=== PATIENT | male | born 1950 | race Caucasian/White ===

== ENCOUNTER 2019-04-26 08:59 | Outpatient (RCR) | payer MEDICARE, MEDICAID, SELFPAY ==
[2019-04-26 10:43] LABS: IFOB Positive Control Positive; Immunochemical Fecal Occult Bl Negative (N)
== END 2019-07-25 23:59 | disposition home or self-care (01) ==
LOC: ANHLAB 08:59
PROVIDERS: PCP Family Medicine; Visit Provider Internal Medicine Gastroenterology
DX: K92.1 Melena (principal); B96.81 Helicobacter pylori [H. pylori] as the cause of diseases classified elsewhere
CPT/HCPCS: 82274

== ENCOUNTER 2019-12-06 11:50 | Emergency (ER) | payer MEDICARE, MEDICAID, SELFPAY ==
--- NOTE | ~2019-12-06 | XR_ITS ---
EXAMINATION: XR ribs LT 2V w CXR 2V EXAM DATE: 12/06/2019 12:53 INDICATION: Left rib pain, shortness of breath. No known injury. TECHNIQUE: Frontal projection of the upper left ribs, frontal projection of the lower left ribs, obli que projection of the left ribs, frontal and lateral chest x-ray(s) for interpretation. Correlation i s made to chest x-ray 09/14/2018. FINDINGS: There are no displaced acute left rib fractures identified. There is no soft tissue abnor mality seen. Minimal left basilar atelectasis. No confluent consolidation, pneumothorax or pleural ef fusion suspected. Cardiomediastinal silhouette is normal. IMPRESSION: Minimal left basilar atelectasis. Unremarkable ribs. Reviewed, dictated and finalized at location B.
--- NOTE | ~2019-12-06 | CT_ITS ---
EXAMINATION: CT abdomen pelvis w con EXAM DATE: 12/06/2019 14:12 INDICATION: Left-sided upper abdominal pain, symptoms 3-4 days. Shortness of breath. History of bladd er and colon and testicular cancer. TECHNIQUE: Spiral CT of the abdomen and pelvis was performed following intravenous injection of 100 m L Omnipaque 350. Axial, coronal and sagittal images were reviewed. The dose-length product (DLP) fo r this examination was 572.04 mGy-cm. The exposure was tailored according to patient size (auto mA e xposure control), and iterative reconstruction (ASIR) was used as additional dose reduction technique . Comparison is made to prior examination from 09/14/2018. FINDINGS: The liver, spleen, adrenal glands and pancreas are unremarkable. Gallbladder is unremarkab le. No biliary obstruction. Portal and splenic veins are patent. Kidneys enhance symmetrically. T here is no hydronephrosis. The prostate is unremarkable. Some diffuse bladder wall thickening, cou ld indicate chronic cystitis. There is no retroperitoneal or pelvic lymphadenopathy. There is mil d scattered arteriosclerotic disease. Mild descending colonic diverticulosis with moderate amount of inflammation surrounding a diverticula , acute uncomplicated diverticulitis. There is moderate sigmoid diverticulosis. The appendix is mason l. The stomach and small bowel are unremarkable. There is expected amount of colonic stool. No fr ee intraperitoneal gas. The heart is normal in size. There are no pericardial or pleural effusions . The lung bases are unremarkable. 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 There are no osteoblastic or osteolytic lesions identified. IMPRESSION: Acute uncomplicated descending colonic diverticulitis. Reviewed, dictated and finalized at location B.
[2019-12-06 11:57] VITALS: BP 115/90; PULSE 114; RESP 18; TEMP 37; O2SAT 100
--- NOTE | 2019-12-06 12:37 | ECG_ITS ---
Measurements Intervals [place] Rate: 93 P: 27 WV: 125 QRS: 35 QRSD: 102 T: 26 QT: 349 QTc: 436 Interpretive Statements SINUS RHYTHM NORMAL ECG Electronically Signed On 12-06-2019 13:50:49 CDT by Aleksandar Whitfield D.O.
[2019-12-06 12:52] LABS: Alanine Aminotransferase 37 U/L (4-50); Albumin Level 4.5 g/dL (3.5-5.1); Alkaline Phosphatase 43 U/L (38-126); Aspartate Amino Transferase 49 U/L (17-59); Bilirubin,Total 0.5 mg/dL (0.2-1.3); Blood Urea Nitrogen 14 mg/dL (9-20); Calcium 10.1 mg/dL (8.4-10.2); Carbon Dioxide 23 mmol/L (22-30); Chloride 107 mmol/L (98-107); Estimated CRCL calculation 76 ml/min; Estimated Glomerular Filt Rate > 60; Glucose 101 mg/dL (75-110); Potassium 3.9 mmol/L (3.4-5.0); Sodium 140 mmol/L (137-145)
[2019-12-06 12:58] LABS: Basophils Percent Auto 0.4 % (0.2-1.2); Eosinophils Absolute Auto 0.2 K/mm3 (0-0.3); Eosinophils Percent Auto 1.7 % (0-4.4); Hematocrit 43.6 % (42.0-52.0); Hemoglobin 14.3 g/dL (14.0-18.0); Immature Granulocyte Absolute 0.02 K/mm3 (0.00-0.031); Immature Granulocyte Percent A 0.2 % (0-0.5); Lymphocytes Absolute Auto 1.51 K/mm3 (0.9-3.2); Lymphocytes Percent Auto 16.7 % (18.3-44.2); Mean Corpuscular HGB Conc 32.8 g/dl (32-36); Mean Corpuscular Hemoglobin 30.4 pg (26-34); Mean Corpuscular Volume 92.8 fl (80-100); Monocytes Absolute Auto 1.1 K/mm3 (0.1-0.6); Monocytes Percent Auto 11.6 % (2.6-8.5); Neutrophils Absolute Auto 6.3 K/mm3 (1.3-6.7); Neutrophils Percent Auto 69.4 % (45.5-73.1); Platelet Count Result 280 k/mm3 (150-375); Red Cell Distribution Width 12.9 % (11.5-14.5); White Blood Count 9.1 K/mm3 (4.5-10.0)
--- NOTE | 2019-12-06 13:02 | ED.ABDPAIN ---
HPI - Abdominal Pain General Chief Complaint: Abdominal Pain <KEYONNA Ewing Last Filed: 12/06/19 14:57> Stated Complaint: L flank pain <KEYONNA Ewing Last Filed: 12/06/19 14:57> Time Seen by Provider: 12/06/19 12:08 <KEYONNA Ewing Last Filed: 12/06/19 14:57> Source: patient <KEYONNA Ewing Last Filed: 12/06/19 14:57> Mode of arrival: ambulatory <KEYONNA Ewing Last Filed: 12/06/19 14:57> Limitations: no limitations <KEYONNA Ewing Last Filed: 12/06/19 14:57> History of Present Illness HPI narrative: This is a 68 year old male that presents to the ER for left sided abdominal pain x 3 days. Reports pain is worse with deep breathing and movement. Also reports he feels short of breath when he lies on his right side. Denies fever, cough, chest pain, nausea, vomiting, dysuria or hematuria. <KEYONNA Ewing Last Filed: 12/06/19 14:57> Related Data Home Medications: Home Medications Medication Instructions Recorded Confirmed alendronate 70 mg PO WEEKLY 12/06/19 fenofibrate 160 mg PO DAILY 12/06/19 hydrochlorothiazide 25 mg PO DAILY 12/06/19 lisinopril 20 mg PO DAILY 12/06/19 lovastatin 40 mg PO DAILY 12/06/19 metformin 500 mg PO DAILY 12/06/19 propranolol 40 mg PO DAILY 12/06/19 venlafaxine 75 mg PO DAILY 12/06/19 <KEYONNA Ewing Last Filed: 12/06/19 14:57> Allergies/Adverse Reactions: Allergies Allergy/AdvReac Type Severity Reaction Status Date / Time No Known Allergies Allergy Verified 12/06/19 12:02 <KEYONNA Ewing Last Filed: 12/06/19 14:57> Review of Systems Review of Systems: Narrative: CONSTITUTIONAL: Denies fever CARDIOVASCULAR: Denies chest pain, edema. RESPIRATORY: Reports dyspnea. Denies cough GASTROINTESTINAL: Reports abdominal pain. Denies nausea, vomiting, or diarrhea. GENITOURINARY: Denies dysuria or hematuria. <Roseann Lozano PA-C - Last Filed: 12/06/19 14:57> All systems reviewed & are unremarkable except as noted in HPI and below <Roseann Lozano PA-C - Last Filed: 12/06/19 14:57> PMFSH Past Medical History Medical History: Medical History (Updated 12/06/19 @ 14:55 by Roseann Lozano PA-C) History of bladder cancer History of colon cancer History of diabetes mellitus History of hyperlipidemia History of hypertension History of testicular cancer <Roseann Lozano PA-C - Last Filed: 12/06/19 14:57> Family History Family History: Family History (Updated 10/05/15 @ 14:03 by DOCTOR UNKNOWN) Sibling Malignant neoplasm of prostate Mother Family history of heart disease in male family member before age 55 Other Diabetes mellitus Family history of allergic disorder Hypertension <Roseann Lozano PA-C - Last Filed: 12/06/19 14:57> Social History Social History: Social History Alcohol intake: never Gender identity (if verbalized by the patient): Male <Roseann Lozano PA-C - Last Filed: 12/06/19 14:57> Exam Narrative: Exam Narrative: GENERAL: Well-appearing, well-nourished, and in no acute distress. HEAD: Normocephalic, atraumatic. EYES: EOMI. CHEST: Clear to auscultation. No respiratory distress. No wheezes rales or rhonchi HEART: Regular rate and rhythm. No murmur heard. Normal peripheral pulses. ABDOMEN: Soft, nondistended, normal active bowel sounds. Mild tenderness palpation of the left upper quadrant, without guarding EXTREMITIES: Normal range of motion. No edema. SKIN: Warm, dry, no rash. NEURO: No focal deficits. Alert and oriented x3. PSYCH: Normal mood and affect <Roseann Lozano PA-C - Last Filed: 12/06/19 14:57> Course Vital Signs Vital signs: Vital Signs Temperature 37.0 C 12/06/19 11:57 Pulse Rate 114 H 12/06/19 11:57 Respiratory Rate 18 12/06/19 11:57 Blood Pressure 115/90 12/06/19 11:57 Pulse Oximetry 100 12/06/19 11:57 Temperature 37.0 C 11/11
[2019-12-06 13:14] LABS: Troponin I < 0.012 ng/mL (0.000-0.034)
[2019-12-06 13:28] LABS: D Dimer 0.27 ug/mL (<0.48)
[2019-12-06 13:37] VITALS: BP 104/77; PULSE 99; RESP 16; O2SAT 97
[2019-12-06 13:58] LABS: Add Urine Microscopic? YES; Appearance Urine Clear (Clear); Bilirubin Urine Negative (Negative); Blood Urine Negative (Negative); Color Urine Yellow (Yellow); Glucose Urine UA Negative (Negative); Ketones Urine Negative (Negative); Leukocyte Esterase Ur Negative LEU/UL (Negative); Mucus Urine Few /lpf; Nitrate Urine Negative (Negative); Protein Urine Negative (Negative); WBC Urine 0-3 /hpf
[2019-12-06 15:03] VITALS: BP 135/89; PULSE 88; RESP 18; O2SAT 99
== END 2019-12-06 15:22 | disposition home or self-care (01) ==
PROVIDERS: Physician Assistant; Emergency Provider Emergency Medicine; PCP Family Medicine
DX: K57.32 Diverticulitis of large intestine without perforation or abscess without bleeding (principal); E11.9 Type 2 diabetes mellitus without complications; E78.5 Hyperlipidemia, unspecified; I10 Essential (primary) hypertension; Z85.038 Personal history of other malignant neoplasm of large intestine; Z85.51 Personal history of malignant neoplasm of bladder; Z85.47 Personal history of malignant neoplasm of testis; Z79.84 Long term (current) use of oral hypoglycemic drugs
CPT/HCPCS: 36415; 71046; 71100; 74177; 80053; 81001; 84484; 85025; 85380; 93005; 99284; Q9967

== ENCOUNTER 2019-12-30 09:56 | Outpatient (CLI) | payer MEDICARE, MEDICAID, SELFPAY ==
[2019-12-30 10:47] LABS: Estimated Glomerular Filt Rate > 60
== END 2019-12-30 09:57 | disposition home or self-care (01) ==
PROVIDERS: PCP Family Medicine; Visit Provider Internal Medicine Gastroenterology
DX: R10.32 Left lower quadrant pain (principal)
CPT/HCPCS: 36415; 82565

== ENCOUNTER 2020-12-08 12:43 | Emergency (ER) | payer MEDICARE, MEDICAID, SELFPAY ==
--- NOTE | ~2020-12-08 | XR_ITS ---
EXAMINATION: XR finger 4th RT min 2V INDICATION: Right fourth finger pain TECHNIQUE: Three views of the right fourth finger are obtained. COMPARISON: None available FINDINGS: Bone alignment is normal. There is no fracture. There is flexion of the fourth finger. The soft tissues appear unremarkable. IMPRESSION: 1. No acute osseous abnormality. Flexion of the fourth finger could reflect tendinous injury. Reviewed, dictated and finalized at location B. IMPRESSION: 1. No acute osseous abnormality. Flexion of the fourth finger could reflect ten dinous injury.
[2020-12-08 12:52] VITALS: BP 114/72; PULSE 71; RESP 16; TEMP 36.7; O2SAT 98
[2020-12-08 12:59] VITALS: BP 114/72; PULSE 71; RESP 16; TEMP 36.7; O2SAT 98
--- NOTE | 2020-12-08 13:22 | ED.UPPEXIN ---
HPI - Extremity Injury (Upper) General Chief Complaint: Extremity Injury, Upper Stated Complaint: right 4th finger injury Time Seen by Provider: 12/08/20 13:04 Source: patient and RN notes reviewed Mode of arrival: ambulatory Limitations: no limitations History of Present Illness HPI narrative: Patient presents today complaint of an injury to his right fourth finger. He struck the finger on the door to his refrigerator this morning and now cannot fully extend the finger at the DIP. Denies pain. He has not tried any interventions prior to arrival. Denies numbness or tingling in the hand or finger. MD complaint: injury to: right and finger Related Data Home Medications Medication Instructions Recorded Confirmed alendronate 70 mg PO WEEKLY 12/06/19 fenofibrate 160 mg PO DAILY 12/06/19 hydrochlorothiazide 25 mg PO DAILY 12/06/19 lisinopril 20 mg PO DAILY 12/06/19 propranolol 40 mg PO DAILY 12/06/19 venlafaxine 75 mg PO DAILY 12/06/19 bupropion HCl mg PO 12/08/20 sitagliptin [Januvia] mg 12/08/20 Allergies Allergy/AdvReac Type Severity Reaction Status Date / Time No Known Allergies Allergy Verified 12/06/19 12:02 Review of Systems Review of Systems: Narrative: CONSTITUTIONAL: Denies body aches, fever, chills, or sweats. EYES: Denies visual changes, redness, or discharge. ENT: Denies rhinorrhea, congestion, sore throat, or otalgia. CARDIOVASCULAR: Denies chest pain, palpitations, or edema. RESPIRATORY: Denies cough or dyspnea. GASTROINTESTINAL: Denies abdominal pain, nausea, vomiting, or diarrhea. GENITOURINARY: Denies dysuria or hematuria. SKIN: Denies rash, itching, or wounds. MUSCULOSKELETAL: Denies back pain, joint pain, or myalgia.+ Decreased range of motion in the right fourth finger NEUROLOGIC: Denies headache, numbness, tingling, or weakness. PSYCH: Denies depression or anxiety. [facility] Past Medical History Medical History (Updated 12/08/20 @ 16:52 by Annabelle Alejandro, [facility], ) Anxiety Depression Diabetes Eczema History of bladder cancer History of colon cancer History of diabetes mellitus History of hyperlipidemia History of hypertension History of testicular cancer Hypercholesterolemia Hypertension Osteoporosis Surgical History Surgical History (Updated 12/08/20 @ 16:52 by Annabelle Alejandro, [facility], ) History of colon resection History of orchiectomy, unilateral Family History Family History (Updated 10/05/15 @ 14:03 by DOCTOR UNKNOWN) Sibling Malignant neoplasm of prostate Mother Family history of heart disease in male family member before age 55 Other Diabetes mellitus Family history of allergic disorder Hypertension Social History Social History Alcohol intake: never Gender identity (if verbalized by the patient): Male Comments At time of signature, I have reviewed and agree with nursing past medical, surgical, social and family history unless otherwise noted. Please see nursing chart for further information. There is no relevant family history pertinent to the presenting complaint Exam Narrative: Exam Narrative: GENERAL: Well-appearing, well-nourished, and in no acute distress. HEAD: Normocephalic, atraumatic. EYES: EOMI. No redness or drainage. Conjunctivae normal. ENT: Mucous membranes pink and moist. NECK: Normal AROM. CHEST: No respiratory distress. EXTREMITIES: Right fourth finger: patient unable to extend at the DIP. PROM of the DIP fully without pain. Full AROM of the PIP without pain. No tenderness of the finger. SKIN: Warm, dry, no rash. Capillary refill normal. Normal skin turgor. NEURO: No focal deficits. Alert and oriented x3. Gait steady. PSYCH: Normal affect. No signs of depression or anxiety. Course Vital Signs Vital signs: Vital Signs Temperature 98.0 F 12/08/20 12:52 Pulse Rate 71 12/08/20 12:52 Respiratory Rate 16 12/08/20 12:52 Blood Pressure 114/72 12/08/20 12:52 Pulse Oximetry 98 12/08/20 12
== END 2020-12-08 13:34 | disposition home or self-care (01) ==
PROVIDERS: Emergency Provider Nurse Practitioner
DX: M20.011 Mallet finger of right finger(s) (principal); E11.9 Type 2 diabetes mellitus without complications; E78.5 Hyperlipidemia, unspecified; I10 Essential (primary) hypertension; E78.00 Pure hypercholesterolemia, unspecified; M81.0 Age-related osteoporosis without current pathological fracture; Z85.038 Personal history of other malignant neoplasm of large intestine; Z85.51 Personal history of malignant neoplasm of bladder; Z85.47 Personal history of malignant neoplasm of testis
CPT/HCPCS: 29130; 73140; 99213; G0463

== ENCOUNTER 2021-02-10 01:08 | Day surgery (SDC) | payer MEDICARE, MEDICAID, SELFPAY ==
[2021-02-04 15:27] VITALS: BMI 24.5
--- NOTE | ~2021-02-10 | XR_ITS ---
EXAMINATION: XR surgery orthopedic DATE: 02/10/2021 11:53 INDICATION: Closed reduction percutaneous pinning of the right fourth finger. TECHNIQUE: 6 fluoroscopic spot images of the right fourth digit were obtained during procedure perfor med by Dr. Elder. Radiologist was not present for the imaging or procedure. The amount of fluoroscopy time used during this procedure was 0.9 minutes. COMPARISON: None. FINDINGS: Mild mallet finger deformity of the right fourth digit with persistent mild flexion at the distal int erphalangeal joint despite normal extension of the proximal interphalangeal joint. There is soft tiss ue swelling about the proximal interphalangeal joint. Subsequent images demonstrate reduction to norm al extended alignment and percutaneous pin fixation across the distal interphalangeal joint with a pa ir of previous pins extending from the tuft of the distal phalanx to the base of the middle phalanx. No fracture. Mild osteoarthritis at the third distal interphalangeal joint. IMPRESSION: 1. Expected appearance during reduction and percutaneous pin fixation of a mallet finger deformity of the right fourth finger. Correlate with procedure note for further detail. Reviewed, dictated and finalized at location A. IMPRESSION: 1. Expected appearance during reduction and percutaneous pin fixation of a mall et finger deformity of the right fourth finger. Correlate with procedure note f or further detail.
--- NOTE | 2021-02-10 07:35 | WPDHPUPDATE1 ---
History and Physical Update Update Date/Time: 02/10/21 07:35 History and Physical has been reviewed, including an updated exam of the patient. There are NO changes in the patient's condition. Risks, benefits, and alternatives have been discussed and questions answered. Patient agrees to proceed with procedure.
[2021-02-10 10:53] VITALS: BP 117/82; PULSE 68; RESP 14; TEMP 36.6; O2SAT 99
[2021-02-10 11:14] VITALS: BP 109/81; PULSE 66; RESP 18; O2SAT 97
[2021-02-10 11:20] VITALS: BP 111/76; PULSE 68; RESP 18; O2SAT 97
[2021-02-10 11:30] VITALS: BP 114/85; PULSE 68; RESP 18; O2SAT 97
[2021-02-10 11:40] VITALS: BP 118/77; PULSE 71; RESP 18; O2SAT 97
[2021-02-10 11:54] VITALS: BP 121/89; PULSE 69; RESP 18; O2SAT 96
--- NOTE | 2021-02-10 11:59 | W.PM.PROC2 ---
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 He was taken to the operating room placed supine operating table. A time-out was held and confirmed. The digit was anesthetized with 1% lidocaine with epinephrine was prepped and draped in usual fashion. Imaging was done to confirm the condition and to place a marking on the skin for orientation. Closed positioning was done and the 0.045 in C-wire was driven retrograde from the tip of the finger through the distal phalanx across the proximal interphalangeal joint and into the base of the middle phalanx. This was guided by the imaging along the way. This was a satisfactorily placed pen. A 2.045nd inch C-wire was driven alongside this went. Both pins were cut well below the skin level after making small incisions. The small incisions were closed with interrupted 5 0 nylon. Small bandage was applied patient discharged home with a prescription for hydrocodone 10/12/2024 number 5 Implants 0.045 in C wires x2 Estimated Blood Loss 0 Tourniquet Time 0 Drains No Packing No Pathology none sent Complications No immediate complications Condition stable Disposition same day
--- NOTE | 2021-02-10 12:34 | SUR.PHASEII ---
NO PAIN, DISCHARGE HOME.
== END 2021-02-10 12:21 | disposition home or self-care (01) ==
PROVIDERS: PCP Physician Assistant; Visit Provider Plastic Surgery
PROC: (CPT 26432; principal; 2021-02-10 11:00)
DX: M20.011 Mallet finger of right finger(s) (principal); I10 Essential (primary) hypertension; E11.9 Type 2 diabetes mellitus without complications
CPT/HCPCS: 26432; A9270; C1713

== ENCOUNTER 2021-10-13 09:59 | Outpatient (CLI) | payer MEDICARE, MEDICAID, SELFPAY ==
--- NOTE | ~2021-10-13 | XR_ITS ---
EXAMINATION: XR foot LT min 3V DATE: 10/13/2021 10:16 INDICATION: Left foot pain. TECHNIQUE: 4 views of left foot were obtained. COMPARISON: None. FINDINGS: There is lateral subluxation of second distal phalanx. No fracture. There is severe osteoar thritis of first metatarsophalangeal joint and mild osteoarthritis of the some of the interphalangeal joints and midfoot joints. There is an enthesophyte at plantar aspect of calcaneal tuberosity. IMPRESSION: 1. Polyarticular osteoarthritis. Reviewed, dictated and finalized at location B.
== END 2021-10-13 10:00 | disposition home or self-care (01) ==
PROVIDERS: PCP Physician Assistant; Visit Provider Physician Assistant
DX: M79.672 Pain in left foot (principal); M79.10 Myalgia, unspecified site; M19.072 Primary osteoarthritis, left ankle and foot
CPT/HCPCS: 73630

== ENCOUNTER 2021-10-14 06:53 | Outpatient (CLI) | payer MEDICARE, MEDICAID, SELFPAY ==
[2021-10-14 07:38] LABS: Alanine Aminotransferase 18 U/L (4-50); Albumin Level 4.5 g/dL (3.5-5.1); Alkaline Phosphatase 42 U/L (38-126); Anion Gap 8 mmol/L (8-16); Aspartate Amino Transferase 22 U/L (17-59); Bilirubin,Total 0.7 mg/dL (0.2-1.3); Blood Urea Nitrogen 12 mg/dL (9-20); CRP < 0.5 mg/dL (<1.0); Calcium 9.2 mg/dL (8.4-10.2); Carbon Dioxide 27 mmol/L (22-30); Chloride 101 mmol/L (98-107); Cholesterol 152 mg/dL (0-200); Estimated Glomerular Filt Rate > 60; Glucose 106 mg/dL (65-110); HDL Direct 45 mg/dL; Potassium 3.8 mmol/L (3.4-5.0); Sodium 136 mmol/L (137-145); Triglycerides 59 mg/dL (<150); Uric Acid 4.9 mg/dL (3.5-8.5)
[2021-10-14 07:48] LABS: LDL Cholesterol Direct 86 mg/dL
[2021-10-14 08:04] LABS: Basophils Absolute Auto 0.1 K/mm3 (0.0-0.1); Basophils Percent Auto 1.3 % (0.2-1.2); Eosinophils Absolute Auto 0.1 K/mm3 (0-0.3); Eosinophils Percent Auto 1.7 % (0-4.4); Hematocrit 46.3 % (42.0-52.0); Hemoglobin 15.8 g/dL (14.0-18.0); Immature Granulocyte Absolute 0.05 K/mm3 (0.00-0.031); Lymphocytes Absolute Auto 1.41 K/mm3 (0.9-3.2); Lymphocytes Percent Auto 27.2 % (18.3-44.2); Mean Corpuscular HGB Conc 34.1 g/dl (32-36); Mean Corpuscular Hemoglobin 31.3 pg (26-34); Mean Corpuscular Volume 91.9 fl (80-100); Mean Platelet Volume 9.5 fl (7.4-10.4); Monocytes Absolute Auto 0.5 K/mm3 (0.1-0.6); Monocytes Percent Auto 9.8 % (2.6-8.5); Neutrophils Absolute Auto 3.1 K/mm3 (1.3-6.7); Platelet Count Result 251 k/mm3 (150-375); Red Blood Count 5.04 M/mm3 (4.6-6.20); Red Cell Distribution Width 12.1 % (11.5-14.5); White Blood Count 5.2 K/mm3 (4.5-10.0)
[2021-10-14 09:04] LABS: Erythrocyte Sedimentation Rate 1 mm/hr (0-20)
[2021-10-14 09:21] LABS: Appearance Urine Clear (Clear); Bilirubin Urine 1+ (Negative); Blood Urine Negative (Negative); Color Urine Yellow (Yellow); Glucose Urine UA Negative (Negative); Ketones Urine Trace mg/dL (Negative); Leukocyte Esterase Ur Negative LEU/UL (NEGATIVE); Nitrate Urine Negative (Negative); Protein Urine Negative (Negative); Specific Grav Ur >= 1.030 (1.001-1.035); Urobilinogen Urine 0.2 mg/dL (<2.0); pH Urine 5.5 (5.0-9.0)
[2021-10-14 09:32] LABS: Bacteria Urine Trace /hpf; Mucus Urine Heavy /lpf; RBC Urine 0-2 /hpf (0-2)
[2021-10-14 09:34] LABS: Add Urine Microscopic? YES
== END 2021-10-14 06:54 | disposition home or self-care (01) ==
LOC: ANHLAB 07:00
PROVIDERS: PCP Physician Assistant; Visit Provider Physician Assistant
DX: E78.5 Hyperlipidemia, unspecified (principal); M79.10 Myalgia, unspecified site; E11.9 Type 2 diabetes mellitus without complications
CPT/HCPCS: 36415; 80053; 80061; 81001; 84550; 85025; 85652; 86140

== ENCOUNTER 2022-01-31 06:53 | Outpatient (CLI) | payer MEDICARE, MEDICAID, SELFPAY ==
--- NOTE | ~2022-01-31 | CT_ITS ---
EXAMINATION: CT abdomen pelvis w con INDICATION: Left-sided abdominal pain TECHNIQUE: Computed tomographic images of the abdomen and pelvis were obtained after the administrati on of 100 cc of Omnipaque 350 intravenous contrast. The dose-length product (DLP) was 597.81 mGy-cm. Automated exposure control and iterative reconstruction technique were employed. COMPARISON: 12/06/2019 FINDINGS: Minimal dependent atelectasis is present in the lung bases. The heart size is normal. The l iver, spleen, pancreas, gallbladder, and adrenal glands are normal. Cysts of the kidneys measure up t o 3.1 cm on the right. There is calcified atherosclerosis of the aorta and many of the other arteries . No pathologically enlarged abdominal or pelvic lymph nodes are identified. The appendix is normal. There is no free intraperitoneal gas or evidence of bowel obstruction. Colonic diverticulosis is pres ent without evidence of diverticulitis. There is mild chronic circumferential wall thickening of the urinary bladder, likely chronic outlet obstruction. 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 IMPRESSION: 1. No CT correlate for the patient's symptoms. 2. Diverticulosis without evidence of diverticulitis. Reviewed, dictated and finalized at location B.
[2022-01-31 07:14] LABS: Estimated Glomerular Filt Rate > 60
== END 2022-01-31 06:54 | disposition home or self-care (01) ==
PROVIDERS: PCP Physician Assistant; Visit Provider Nurse Practitioner Family
DX: R10.9 Unspecified abdominal pain (principal); K57.30 Diverticulosis of large intestine without perforation or abscess without bleeding
CPT/HCPCS: 74177; Q9967

== ENCOUNTER 2022-05-18 10:28 | Day surgery (SDC) | payer MEDICARE, MEDICAID, SELFPAY ==
[2022-05-10 09:26] VITALS: BMI 26.3
--- NOTE | 2022-05-17 15:04 | PM.HPGS ---
History of Present Illness History of Present Illness Consent: Risks, benefits, and alternatives have been discussed and questions answered. Patient agrees to proceed with procedure. Chief complaint: History of Rectal Cancer Narrative: Giancarlo Thakkar is a 71 year old male referred for colon cancer screening. He states that 6 years ago he had removal of a ?cancerous rectal polyp?. Three years ago he had removal of a tubular adenoma. Review of Systems Review of Systems: All systems reviewed & are unremarkable except as noted in HPI and below PMFSH Past Medical History Medical History Adenomatous colon polyp Anxiety Depression Eczema History of bladder cancer History of colon cancer History of diabetes mellitus History of hyperlipidemia History of hypertension History of testicular cancer Hx of malignant neoplasm of rectum Hypercholesterolemia Hypertension Left sided abdominal pain Osteoporosis Surgical History Surgical History History of colon resection History of orchiectomy, unilateral Family History Family History Sibling Malignant neoplasm of prostate Mother Family history of heart disease in male family member before age 55 Other Diabetes mellitus Family history of allergic disorder Hypertension Social History Social History Smoking status: Never smoker Alcohol intake: never Alcohol use details: MODERATELY HEAVY ALCOHOL USE IN PAST Substance use: never Substance use type: does not use Living arrangements: alone Gender identity (if verbalized by the patient): Male Spiritual care concerns: No Meds Home Medications and Allergies Home Medications Medication Instructions Recorded Confirmed Type alendronate 70 mg tablet 70 mg PO WEEKLY 12/06/19 05/18/22 History hydrochlorothiazide 25 mg tablet 25 mg PO QAM 12/06/19 05/18/22 History lisinopril 20 mg tablet 20 mg PO QAM 12/06/19 05/18/22 History propranolol 40 mg tablet 20 mg PO BID 12/06/19 05/18/22 History bupropion HCl 150 mg 24 hr tablet, 150 mg PO QAM 12/08/20 05/18/22 History extended release Allergies Allergy/AdvReac Type Severity Reaction Status Date / Time No Known Allergies Allergy Verified 05/18/22 11:43 Exam Const: General: alert Orientation/consciousness: patient oriented x3 Resp: Auscultation: clear to auscultation bilaterally Cardio: Rhythm: regular rhythm GI: GI Palp: Yes Soft to palpation and No Tenderness to palpation present (GI) Neuro: General: patient oriented x3 Assessment and Plan Assessment and plan (1) Colon cancer screening: Code(s): Z12.11 - Encounter for screening for malignant neoplasm of colon Status: Acute Assessment and Plan: Colonoscopy with possible biopsy or polypectomy or cautery or injection of substances.
--- NOTE | 2022-05-18 07:21 | WPDANESEPPF ---
Anes - Initial Pre Proc Eval Procedure: Operation Date: 05/18/22 12:30 Proposed Procedures p Screening Colonoscopy - Jose Samaniego MD Date/Time: 05/18/22 07:21 Surgeon: Jose Samaniego MD Pre Op Diagnosis: History of Rectal Cancer Patient Data Age: 71 Gender: M Height: 1.73 m Weight: 78.5 kg Allergies Allergy/AdvReac Type Severity Reaction Status Date / Time No Known Allergies Allergy Verified 05/10/22 09:28 Home Medications Medication Instructions Recorded Confirmed Type alendronate 70 mg tablet 70 mg PO WEEKLY 12/06/19 05/10/22 History hydrochlorothiazide 25 mg tablet 25 mg PO QAM 12/06/19 05/10/22 History lisinopril 20 mg tablet 20 mg PO QAM 12/06/19 05/10/22 History propranolol 40 mg tablet 20 mg PO BID 12/06/19 05/10/22 History bupropion HCl 150 mg 24 hr tablet, 150 mg PO QAM 12/08/20 05/10/22 History extended release Patient hx anesthesia problems: none Family hx anesthesia problems: none Results Review: All pre-operative results and documents have been reviewed as part of the pre-operative evaluation. [facility] Past Medical History Medical History (Updated 05/18/22 @ 11:22 by Anish Mcpherson DO) Adenomatous colon polyp Anxiety Depression Eczema History of bladder cancer History of colon cancer History of diabetes mellitus History of hyperlipidemia History of hypertension History of testicular cancer Hx of malignant neoplasm of rectum Hypercholesterolemia Hypertension Left sided abdominal pain Osteoporosis Surgical History Surgical History History of colon resection History of orchiectomy, unilateral Family History Family History Sibling Malignant neoplasm of prostate Mother Family history of heart disease in male family member before age 55 Other Diabetes mellitus Family history of allergic disorder Hypertension Social History Social History Smoking status: Never smoker Alcohol intake: never Alcohol use details: MODERATELY HEAVY ALCOHOL USE IN PAST Substance use: never Substance use type: does not use Living arrangements: alone Gender identity (if verbalized by the patient): Male Spiritual care concerns: No Anes - Eval Final PreProcedure Day of Procedure 05/18/22 07:21 Patient weight: overweight Heart: regular rate and rhythm Lungs: clear to auscultation Airway: Mallampati scale class II Neurological: alert and oriented Last oral intake: >/= 8 hours ASA classification: II Emergent: no Anesthetic plan: proceed Anesthesia type and monitoring: general GIVS and standard monitoring Results Review: All pre-operative results and documents have been reviewed as part of the pre-operative evaluation. Informed Consent: The patient's anesthetic plan and its attendant risks and benefits were discussed with the patient/family/POA. Questions were solicited and answers provided to the satisfaction of the patient/family/POA.
[2022-05-18 10:50] VITALS: BP 140/102; PULSE 109; RESP 20; TEMP 36.5; O2SAT 99
[2022-05-18] MEDS: LACTATED RINGERS 1,000 ML 150 ML IV CONT (11:49)
[2022-05-18 12:23] VITALS: BP 110/87; PULSE 108; RESP 18; O2SAT 95
[2022-05-18 12:33] VITALS: BP 131/98; PULSE 93; RESP 18; O2SAT 99
[2022-05-18 12:43] VITALS: BP 124/98; PULSE 96; RESP 18; O2SAT 100
--- NOTE | 2022-05-18 12:47 | SUR.PHASEII ---
pt awake and alert. denies pain. eating and drinking.
--- NOTE | 2022-05-18 13:19 | SUR.PHASEII ---
1315; pt dressed and waiting for ride
--- NOTE | 2022-05-18 13:37 | WPDANESPN ---
Anes - Prog Note Post-Op Date/Time: 05/18/22 13:37 Cardiovascular status: normal Respiratory status: normal Airway patency: baseline Mental status: baseline Post-Op hydration status: normal Vital Signs: Last Vital Signs Temp 36.5 C 05/18/22 10:50 Pulse 96 05/18/22 12:43 Resp 18 05/18/22 12:43 BP 124/98 H 05/18/22 12:43 Pulse Ox 100 05/18/22 12:43 O2 Del Method Room Air 05/18/22 12:43 Pain Score (VAS): 0 I/O: Intake & Output 05/17/22 05/18/22 05/18/22 23:59 07:59 15:59 Intake Total 500 Balance 500 Post-procedural complaints: none Patient Feedback: Patient satisfied with anesthetic care. Other Findings: Patient vital signs back to baseline. Patient denies nausea and vomiting. Patient's pain under control. Patient OK for discharge.
[2022-05-18 13:53] LABS: Glucose Point of Care 135 mg/dl (65-105)
== END 2022-05-18 13:25 | disposition home or self-care (01) ==
PROVIDERS: PCP Nurse Practitioner Family; Visit Provider Internal Medicine Gastroenterology
PROC: 0DJD8ZZ Inspection of Lower Intestinal Tract, Via Natural or Artificial Opening Endoscopic (ICD-10-PCS; CPT 45378; principal; 2022-05-18 12:30)
DX: Z12.11 Encounter for screening for malignant neoplasm of colon (principal)
CPT/HCPCS: 45378

== ENCOUNTER 2022-09-29 07:46 | Emergency (ER) | payer MEDICARE, MEDICAID, SELFPAY ==
[2022-09-29 07:48] VITALS: BP 136/95; PULSE 64; RESP 16; TEMP 36.7; O2SAT 100
--- NOTE | 2022-09-29 08:55 | ED.EYEPROB ---
HPI - Eye Problem General Chief complaint: Eye Problems Stated complaint: eye irratitation and dryness Time Seen by Provider: 09/29/22 08:10 History of Present Illness HPI Narrative: Patient is a 71-year-old male who presents ER with dry eyes. Ongoing for 2 weeks. Worse in the mornings. Today he had some swelling around his lids and he was squinting. No tearing. He reports that he was seen by an employee benefits administrator yesterday and diagnosed with dry eyes. He is on a artificial tear. He has been taking Zyrtec during the day and Benadryl at night. No change in vision or hearing. No flashers or floaters. No discharge from the eye. Related Data Home Medications Medication Instructions Recorded Confirmed alendronate 70 mg tablet 70 mg PO WEEKLY 12/06/19 05/18/22 hydrochlorothiazide 25 mg tablet 25 mg PO QAM 12/06/19 05/18/22 lisinopril 20 mg tablet 20 mg PO QAM 12/06/19 05/18/22 propranolol 40 mg tablet 20 mg PO BID 12/06/19 05/18/22 bupropion HCl 150 mg 24 hr tablet, 150 mg PO QAM 12/08/20 05/18/22 extended release Allergies Allergy/AdvReac Type Severity Reaction Status Date / Time No Known Allergies Allergy Verified 09/29/22 07:48 Review of Systems Review of Systems: All systems reviewed & are unremarkable except as noted in HPI and below Constitutional: Constitutional: Denies chills and Denies fever(s) Eyes: Eyes: Denies change in vision and Denies photophobia ENT: Denies nasal congestion and Denies sore throat PMFSH Past Medical History Medical History Adenomatous colon polyp Anxiety Depression Eczema History of bladder cancer History of colon cancer History of diabetes mellitus History of hyperlipidemia History of hypertension History of testicular cancer Hx of malignant neoplasm of rectum Hypercholesterolemia Hypertension Left sided abdominal pain Osteoporosis Surgical History Surgical History History of colon resection History of orchiectomy, unilateral Family History Family History Sibling Malignant neoplasm of prostate Mother Family history of heart disease in male family member before age 55 Other Diabetes mellitus Family history of allergic disorder Hypertension Social History Social History Smoking status: Never smoker Alcohol intake: never Alcohol use details: MODERATELY HEAVY ALCOHOL USE IN PAST Substance use: never Substance use type: does not use Living arrangements: alone Gender identity (if verbalized by the patient): Male Spiritual care concerns: No Exam Narrative: GENERAL: Well-appearing, well-nourished, and in no acute distress. HEAD: Normocephalic, atraumatic. EYES: PERRLA and EOMI. no conjunctival injection. Sclera are white and noninjected. Visual acuity 20/25 in the left and 20/30 in the right with correction. ENT: Mucous membranes moist. EXTREMITIES: Normal range of motion. No edema. SKIN: Warm, dry, no rash. NEURO: N Alert and oriented x3. PSYCH: Normal mood and affect. Course Course Emergency Course: No additional interventions, normal vision, recommend continued artificial tears. If he did have some swelling could be some allergic rhinitis and using Flonase which she has at home may be beneficial. Vital Signs Vital signs: Vital Signs Temperature 98.1 F 09/29/22 07:48 Pulse Rate 64 09/29/22 07:48 Respiratory Rate 16 09/29/22 07:48 Blood Pressure 136/95 H 09/29/22 07:48 Pulse Oximetry 100 09/29/22 07:48 Oxygen Delivery Room Air 09/29/22 07:48 Temperature 98.1 F 09/29/22 07:48 Pulse Rate 64 09/29/22 07:48 Respiratory Rate 16 09/29/22 07:48 Blood Pressure 136/95 H 09/29/22 07:48 Pulse Oximetry 100 09/29/22 07:48 Oxygen Delivery Room Air 09/29/22 07:48 Discharge Plan Discha
== END 2022-09-29 09:08 | disposition home or self-care (01) ==
PROVIDERS: Emergency Provider Emergency Medicine; PCP Nurse Practitioner Family
DX: H04.123 Dry eye syndrome of bilateral lacrimal glands (principal); E78.00 Pure hypercholesterolemia, unspecified; I10 Essential (primary) hypertension; M81.0 Age-related osteoporosis without current pathological fracture; F41.9 Anxiety disorder, unspecified; Z85.51 Personal history of malignant neoplasm of bladder; Z85.038 Personal history of other malignant neoplasm of large intestine; Z85.47 Personal history of malignant neoplasm of testis; Z85.048 Personal history of other malignant neoplasm of rectum, rectosigmoid junction, and anus; Z86.010 Personal history of colon polyps; Z90.49 Acquired absence of other specified parts of digestive tract; Z90.79 Acquired absence of other genital organ(s)
CPT/HCPCS: 99281

== ENCOUNTER 2022-11-11 07:51 | Outpatient (CLI) | payer MEDICARE, MEDICAID, SELFPAY ==
[2022-11-11 09:32] LABS: Alanine Aminotransferase 19 U/L (6-50); Albumin Level 4.5 g/dL (3.5-5.1); Alkaline Phosphatase 48 U/L (38-126); Anion Gap 8 mmol/L (8-16); Aspartate Amino Transferase 20 U/L (17-59); Bilirubin,Total 0.8 mg/dL (0.2-1.3); Blood Urea Nitrogen 11 mg/dL (9-20); Calcium 9.4 mg/dL (8.4-10.2); Carbon Dioxide 26 mmol/L (22-30); Chloride 104 mmol/L (98-107); Cholesterol 239 mg/dL (0-200); Estimated Glomerular Filt Rate > 60; Glucose 107 mg/dL (65-110); HDL Direct 50 mg/dL; Hemoglobin A1C 5.4 % (<5.7); Potassium 3.8 mmol/L (3.4-5.0); Sodium 138 mmol/L (137-145); Triglycerides 124 mg/dL (<150)
[2022-11-11 09:44] LABS: LDL Cholesterol Direct 158 mg/dL
[2022-11-11 10:01] LABS: Prostate Specific Antigen 1.2 ng/mL (< OR = 4.0)
[2022-11-11 10:21] LABS: Hepatitis C Virus Antibody Negative (Negative)
== END 2022-11-11 07:52 | disposition home or self-care (01) ==
PROVIDERS: PCP Nurse Practitioner Family; Visit Provider Nurse Practitioner Family
DX: R73.03 Prediabetes (principal); Z11.59 Encounter for screening for other viral diseases; E78.2 Mixed hyperlipidemia; Z12.5 Encounter for screening for malignant neoplasm of prostate; I10 Essential (primary) hypertension
CPT/HCPCS: 36415; 80053; 80061; 83036; 84153; 86803; G0103

== ENCOUNTER 2022-11-30 10:49 | Observation (INO) | payer MEDICARE, MEDICAID, SELFPAY ==
[2022-11-30] VITALS (31 sets, daily range): BP systolic 102–153; BP diastolic 82–107; PULSE 60–96; RESP 13–23; TEMP 36.4–36.9; O2SAT 93–99; BMI 26.1
--- NOTE | ~2022-11-30 | XR_ITS ---
Portable chest x-ray Comparison: 12/06/2019 Clinical History: Chest pain Findings: Lungs are clear, without focal consolidation or pleural effusion. Cardiomediastinal silho uette is stable. Bones and soft tissues are unremarkable. Impression: Normal chest. Reviewed, dictated and finalized at [facility]. Impression: Normal chest.
--- NOTE | ~2022-11-30 | NM_ITS ---
EXAMINATION: NM jethro stress w perfusion DATE: 12/01/2022 13:25 INDICATION: Chest pain TECHNIQUE: Rest images were obtained following intravenous administration of 10.2 mCi Tc99m tetrofosm in (Myoview). The patient was infused intravenously with Lexiscan (Regadenoson). Then, 29.4 mCi Tc99m tetrofosmin (Myoview) was administered intravenously, and stress images were obtained in supine posi tion. Repeat post stress images were obtained in the prone position. Data was reconstructed into shor t axis and horizontal and vertical long axis SPECT images. Gated SPECT images were also obtained. COMPARISON: None. FINDINGS: There is likely diaphragmatic attenuation artifact along the inferior side of the heart on the rest a nd stress imaging obtained in the supine position which on the post stress imaging normalizes in the prone position. There is no definite reversible or fixed perfusion abnormality on the prone post stre ss imaging to suggest ischemia or infarction. There is normal left ventricular chamber size, wall mo tion and ejection fraction. Left ventricular ejection fraction measures 68%. IMPRESSION: 1. Normal myocardial perfusion at rest and during stress. 2. Left ventricular ejection fraction measuring 68%. Reviewed, dictated and finalized at location A.
--- NOTE | 2022-11-30 10:51 | ECG_ITS ---
Measurements Intervals [place] Rate: 64 P: -15 WV: 142 QRS: 31 QRSD: 93 T: 37 QT: 383 QTc: 395 Interpretive Statements SINUS RHYTHM COMPARED TO ECG 12/06/2019 13:28:08 NO SIGNIFICANT CHANGES Electronically Signed On 11-30-2022 19:54:28 CDT by Blanca Beckman M.D.
--- NOTE | 2022-11-30 11:00 | ED.CHESTPAIN ---
HPI - Chest Pain General Chief Complaint: Chest Pain <KEYONNA Sepulveda Last Filed: 11/30/22 17:45> Stated Complaint: Chest discomfort earlier <Roseann Long PA-C - Last Filed: 11/30/22 17:45> Time Seen by Provider: 11/30/22 10:57 <KEYONNA Sepulveda Last Filed: 11/30/22 17:45> History of Present Illness HPI narrative: Patient is 71-year-old male with a history of hypertension, diabetes, smoking here for evaluation of an abnormal sensation in the left side of his chest this morning. Patient states that he was on a walk when he developed a abnormal sensation in the left side of his chest near his ribs. He denies significant pain. Pain persisted afterwards but did ease up when he was at rest. Denies associated nausea, vomiting, diaphoresis, leg swelling, or shortness of breath. The pain came back while he was at rest later in the morning and persisted which prompted his ED evaluation. Denies history of previous similar sensation. Denies any pain currently. Patient had a stress test about 10 years ago that reportedly was normal. <KEYONNA Sepulveda Last Filed: 11/30/22 17:45> Related Data Home Medications: Home Medications Medication Instructions Recorded Confirmed alendronate 70 mg tablet 70 mg PO WEEKLY 12/06/19 11/30/22 hydrochlorothiazide 25 mg tablet 25 mg PO QAM 12/06/19 11/30/22 lisinopril 20 mg tablet 20 mg PO QAM 12/06/19 11/30/22 bupropion HCl 150 mg 24 hr tablet, 150 mg PO QAM PRN Anxiety 12/08/20 11/30/22 extended release blood sugar diagnostic (OneTouch 11/30/22 11/30/22 Ultra Test strips) cyclobenzaprine 5 mg tablet 5 mg PO DAILY PRN Spasms 11/30/22 11/30/22 propranolol 20 mg tablet 20 mg PO BID 11/30/22 11/30/22 <KEYONNA Sepulveda Last Filed: 11/30/22 17:45> Allergies/Adverse Reactions: Allergies Allergy/AdvReac Type Severity Reaction Status Date / Time No Known Allergies Allergy Verified 11/30/22 11:07 <Roseann Long PA-C - Last Filed: 11/30/22 17:45> Review of Systems Review of Systems: Gen: Denies fevers or chills Eyes: Denies eye pain or visual change ENT: Denies congestion Respiratory: Denies shortness of breath or cough CV: Reports chest pain GI: Denies abdominal pain nausea, emesis or diarrhea : denies burning, urgency, frequency or hematuria Musculoskeletal: Denies back pain or muscle pain Neuro: Denies numbness, tingling, weakness or focal weakness Skin: Denies rash Except as documented, all other systems reviewed and negative <Roseann Long PA-C - Last Filed: 11/30/22 17:45> [facility] Past Medical History Medical History: Medical History Adenomatous colon polyp Anxiety Depression Diet-controlled type 2 diabetes mellitus Hemoglobin A1c was 5.4% in November 2022. Eczema History of bladder cancer (2010) Status post TURBT. History of colon cancer Focal amount of cancer cells in colon polyp which was reportedly completely resected. History of testicular cancer Status post right orchiectomy. Hyperlipidemia Hypertension Osteoporosis <Roseann Long PA-C - Last Filed: 11/30/22 17:45> Surgical History Surgical History: Surgical History History of bilateral inguinal hernia repair History of colonoscopy with polypectomy History of resection of small bowel (07/17/12) Repair of perforated, incarcerated ventral hernia with small-bowel resection. History of transurethral resection of bladder tumor (TURBT) (2010) History of unilateral orchiectomy (06/21/17) <KEYONNA Sepulveda Last Filed: 11/30/22 17:45> Family History Family History: Family History Sibling Leukemia has to many white blood cells. Prostate carcinoma Mother Family history of heart disease in male family memb
[2022-11-30] MEDS: ASPIRIN 81 MG CHEWABLE TABLET 324 MG PO (11:06)
[2022-11-30 11:07] LABS: Basophils Percent Auto 0.6 % (0.2-1.2); Eosinophils Absolute Auto 0.1 K/mm3 (0-0.3); Eosinophils Percent Auto 1.8 % (0-4.4); Hematocrit 46.1 % (42.0-52.0); Hemoglobin 15.5 g/dL (14.0-18.0); Immature Granulocyte Absolute 0.02 K/mm3 (0.00-0.031); Immature Granulocyte Percent A 0.3 % (0-0.5); Lymphocytes Absolute Auto 1.47 K/mm3 (0.9-3.2); Lymphocytes Percent Auto 23.5 % (18.3-44.2); Mean Corpuscular HGB Conc 33.6 g/dl (32-36); Mean Corpuscular Hemoglobin 31.1 pg (26-34); Mean Corpuscular Volume 92.6 fl (80-100); Mean Platelet Volume 9.4 fl (7.4-10.4); Monocytes Absolute Auto 0.4 K/mm3 (0.1-0.6); Monocytes Percent Auto 6.4 % (2.6-8.5); Neutrophils Absolute Auto 4.2 K/mm3 (1.3-6.7); Neutrophils Percent Auto 67.4 % (45.5-73.1); Platelet Count Result 268 k/mm3 (150-375); Red Blood Count 4.98 M/mm3 (4.6-6.20); Red Cell Distribution Width 12.1 % (11.5-14.5); White Blood Count 6.3 K/mm3 (4.5-10.0)
[2022-11-30 11:17] LABS: Alanine Aminotransferase 23 U/L (6-50); Albumin Level 4.7 g/dL (3.5-5.1); Alkaline Phosphatase 47 U/L (38-126); Anion Gap 6 mmol/L (8-16); Aspartate Amino Transferase 25 U/L (17-59); Bilirubin,Total 0.7 mg/dL (0.2-1.3); Blood Urea Nitrogen 13 mg/dL (9-20); Calcium 9.3 mg/dL (8.4-10.2); Carbon Dioxide 27 mmol/L (22-30); Chloride 102 mmol/L (98-107); Estimated CRCL calculation 92 ml/min; Estimated Glomerular Filt Rate > 60; Glucose 125 mg/dL (65-110); Lipase 61 U/L (23-300); Potassium 4.1 mmol/L (3.4-5.0); Sodium 135 mmol/L (137-145)
[2022-11-30 11:18] LABS: INR 0.9; Prothrombin Time 12.9 Seconds (11.1-14.7)
[2022-11-30 11:19] LABS: Partial Thromboplastin Time 28.4 SECONDS (22.3-36.8)
[2022-11-30 11:29] LABS: Troponin I < 0.012 ng/mL (0.000-0.034)
[2022-11-30 14:04] LABS: Troponin I < 0.012 ng/mL (0.000-0.034)
--- NOTE | 2022-11-30 15:23 | PM.IMHP ---
H&P: HPI History of Present Illness Date/Time: 11/30/22 16:00 Chief Complaint: Chest pain. Narrative: This is a 71-year-old male with hypertension, hyperlipidemia, and diet-controlled type 2 diabetes who presented to the emergency department via private vehicle from home for evaluation of chest pain. The patient provides the following history. This morning he was on his morning walk when he developed ?an abnormal sensation? on the left side of his chest near the axilla which he has a difficult time describing. He stopped to rest and after some time the discomfort resolved without intervention. Later in the morning this discomfort returned simply while sitting down and this prompted him to come in for evaluation. He had an episode of discomfort in the left scapula while walking yesterday which seemed to improve with heat. He has never had similar symptoms in the past and fact he walks at least 30 minutes each day. He denies associated syncope, near syncope, anxiety, sweats, shortness of breath, nausea, and vomiting. He also denies lower extremity edema, calf pain, and history of venous thromboembolism. Vital signs have been stable since arrival to the emergency department. CMP and CBC are really unremarkable. D-dimer is well within normal limits. Troponins have thus far been negative. EKG showed sinus rhythm without acute ST segment changes. He is being admitted in this setting for close monitoring and Cardiology consultation, given his risk factors. Review of Systems Review of Systems: Twelve systems were reviewed and are negative except for as per HPI. [facility] Past Medical History Medical History (Updated 12/01/22 @ 00:24 by Kami Lopes PA-C) Adenomatous colon polyp Anxiety Depression Diet-controlled type 2 diabetes mellitus Hemoglobin A1c was 5.4% in November 2022. Eczema History of bladder cancer (2010) Status post TURBT. History of colon cancer Focal amount of cancer cells in colon polyp which was reportedly completely resected. History of testicular cancer Status post right orchiectomy. Hyperlipidemia Hypertension Osteoporosis Surgical History Surgical History (Updated 11/30/22 @ 15:34 by Kami Lopes PA-C) History of bilateral inguinal hernia repair History of colonoscopy with polypectomy History of resection of small bowel (07/17/12) Repair of perforated, incarcerated ventral hernia with small-bowel resection. History of transurethral resection of bladder tumor (TURBT) (2010) History of unilateral orchiectomy (06/21/17) Family History Family History Sibling Leukemia has to many white blood cells. Prostate carcinoma Mother Family history of heart disease in male family member before age 55 Hypertension Acute myocardial infarction Father No problems noted. Social History Social History (Updated 12/01/22 @ 00:25 by Kami Lopes PA-C) Social History: Surrogate medical decision maker: Ramona Robertson, niece. Code status: Full code. Smoking packs per day: 0.5 Smoking cigarettes per day: 10.0 Years smoked: 3 Smoking pack-years: 1.50 Smoking status: Former smoker Alcohol intake: never Alcohol use details: Moderately heavy alcohol use in the past. Substance use: former Substance use type: marijuana Lack of Transportation: No Lack of Food: Never True Current Housing: I Have Housing Concerned About Future Housing: No Difficulty Paying Gas/Electric Bills: No Difficulty Paying for Meds: No Currently Unemployed: No Education: High School Diploma/GED Difficulty w/ Childcare or Family Care: No Living arrangements: alone Additional living arrangements comments: Lives in own home in [place]. 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 Spiritual care concerns: No Meds Home Medications and Allergies Home Medications Med
--- NOTE | 2022-11-30 16:00 | ADMGEN ---
This patient, Giancarlo Thakkar, was admitted to IMU Room 200-01. Patient/family oriented to hospital policies and general routines including ID bracelet, bed and alarms, visiting hours, pain management, procedures, bathroom and other care routines, personal items, smoking policy, room service/diet, and visiting hours. Information on how to activate the Rapid Response Team has been discussed. Patient/Family are encouraged to report perceived risks to care and to ask questions if they do not understand what they are told or what they should do.
[2022-11-30] MEDS: NITROGLYCERIN SL 0.4 MG TABLET SUBLINGUAL (16:04)
[2022-11-30 17:26] LABS: Troponin I < 0.012 ng/mL (0.000-0.034)
[2022-11-30 17:32] LABS: D Dimer < 0.27 ug/mL (<0.48)
[2022-11-30] MEDS: ACETAMINOPHEN 325 MG TABLET 650 MG PO (18:04)
[2022-11-30] MEDS: PROPRANOLOL HCL 20 MG TABLET PO (22:31)
[2022-12-01] VITALS (10 sets, daily range): BP systolic 121–125; BP diastolic 79–88; PULSE 54–91; RESP 20; TEMP 36.4–36.5; O2SAT 98–100
[2022-12-01 05:11] LABS: Anion Gap 6 mmol/L (8-16); Blood Urea Nitrogen 11 mg/dL (9-20); Calcium 9.3 mg/dL (8.4-10.2); Carbon Dioxide 34 mmol/L (22-30); Chloride 96 mmol/L (98-107); Estimated CRCL calculation 80 ml/min; Estimated Glomerular Filt Rate > 60; Glucose 84 mg/dL (65-110); Magnesium 2.1 mg/dL (1.6-2.3); Potassium 3.5 mmol/L (3.4-5.0); Sodium 136 mmol/L (137-145)
--- NOTE | 2022-12-01 08:56 | EST_ITS ---
Patient Info Name: Giancarlo Thakkar Age: 71 years : 1950 Gender: Male Ht: 68 in Wt: 172 lbs BSA: 1.95 m2 HR: 68 bpm BP: 120 / 93 mmHg Heart Rhythm: Sinus Rhythm Exam Date: 12/01/2022 12:20 PM Exam Location: [facility] Stress Patient Status: Outpatient Admit Date: 11/30/2022 Staff Ordering Physician: Polly Joel MD Attending Provider: Vincent Raygoza MD Exercise Technologist: Cathryn Anguiano CT Exercise Physician: Polly Joel MD Exam Type: CA stress jethro w NM Study Info Indications R07.89 - Other chest pain A regadenoson stress test was performed. Summary 1. No abnormal ST/T wave changes diagnostic of ischemia with Lexiscan. 2. Single PVC. 3. Please correlate with nuclear medicine images, reported separately. 4. Stress test supervised and interpreted by Polly Joel M.D. Protocol: Lexiscan Stress ECG Details Stage: REST Duration (min): 1 min : 22 sec HR (bpm): 68 SBP (mmHg): --- DBP (mmHg): --- Stage: REST Duration (min): 11 min : 45 sec HR (bpm): 68 SBP (mmHg): --- DBP (mmHg): --- Stage: STAGE 1 Duration (min): 1 min : 0 sec HR (bpm): 80 SBP (mmHg): 129 DBP (mmHg): 92 Stage: RECOVERY Duration (min): 1 min : 0 sec HR (bpm): 95 SBP (mmHg): 129 DBP (mmHg): 92 Stage: RECOVERY Duration (min): 2 min : 0 sec HR (bpm): 94 SBP (mmHg): 129 DBP (mmHg): 92 Stage: RECOVERY Duration (min): 2 min : 49 sec HR (bpm): 101 SBP (mmHg): 112 DBP (mmHg): 83 Rest HR: 68 bpm Peak HR: 98 bpm Peak Sys BP: 129 mmHg Max Pred HR: 148 bpm % Max Pred HR: 66 % Target HR: 126 bpm Max RPP: 12,642 bpm*mmHg Total Time: 1 min : 0 sec Peak Parks BP: 92 mmHg Total Dose: 0.4 mg Resting ECG Sinus rhythm. Stress ECG Sinus rhythm. No abnormal ST/T wave changes diagnostic of ischemia with Lexiscan. Arrhythmias Single PVC. Report Signatures
--- NOTE | 2022-12-01 08:58 | PM.CNCAR ---
Assessment and Plan Assessment and plan (1) Chest pain: Code(s): R07.9 - Chest pain, unspecified Status: Acute Assessment and Plan: Troponins negative x 3. EKG without ischemic changes, no changes compared to prior EKG. Will obtain nuclear stress test. Further recommendations pending results of stress test. Patient to remain NPO for stress test. (2) Hypertension: Code(s): I10 - Essential (primary) hypertension Status: Acute Assessment and Plan: Stable, continue home HCTZ, Lisinopril, beta jennifer (3) Diet-controlled type 2 diabetes mellitus: Code(s): E11.9 - Type 2 diabetes mellitus without complications Status: Acute Assessment and Plan: A1c 5.4%. Not on any medications. (4) Hyperlipidemia: Code(s): E78.5 - Hyperlipidemia, unspecified Status: Acute Assessment and Plan: Lipid panel 11/11/2022 shows: Total cholesterol 239, HDL 50, Triglycerides 124, LDL 158. High-intensity statin is recommended because of known diabetes and ASCVD 10-year risk > 7.5%. Will start high-intensity statin. History of Present Illness History of Present Illness Consult date/time: 12/01/22 08:58 Requesting physician: Roseann Long PA-C Consult reason: chest pain Reason For Visit: unstable angina Narrative: We are consulted for chest pain. This is a 71-year-old male with hypertension, hyperlipidemia, diet-controlled type 2 diabetes who presented to [facility] for chest pain. Patient states he developed left-sided dull pressure while walking yesterday, lasted until he went back home and rested. Patient had brief intermittent recurrences of pain since then, with episodes lasting for a few seconds each. When he arrived to the ER, he was chest pain free. Had a brief few seconds of chest pain early this morning, but has been chest pain free since then. Mother had ID at age 56. Does not smoke. EKG on arrival showed sinus rhythm with no ischemic changes, no significant changes compared to prior EKG. Troponins were negative x 3. CXR without acute findings. Review of Systems Review of Systems: All systems reviewed & are unremarkable except as noted in HPI and below (HPI) PMFSH Past Medical History Medical History Adenomatous colon polyp Anxiety Depression Diet-controlled type 2 diabetes mellitus Hemoglobin A1c was 5.4% in November 2022. Eczema History of bladder cancer (2010) Status post TURBT. History of colon cancer Focal amount of cancer cells in colon polyp which was reportedly completely resected. History of testicular cancer Status post right orchiectomy. Hyperlipidemia Hypertension Osteoporosis Surgical History Surgical History History of bilateral inguinal hernia repair History of colonoscopy with polypectomy History of resection of small bowel (07/17/12) Repair of perforated, incarcerated ventral hernia with small-bowel resection. History of transurethral resection of bladder tumor (TURBT) (2010) History of unilateral orchiectomy (06/21/17) Family History Family History Sibling Leukemia has to many white blood cells. Prostate carcinoma Mother Family history of heart disease in male family member before age 55 Hypertension Acute myocardial infarction Father No problems noted. Social History Social History Social History: Surrogate medical decision maker: tova Glass. Code status: Full code. Smoking packs per day: 0.5 Smoking cigarettes per day: 10.0 Years smoked: 3 Smoking pack-years: 1.50 Smoking status: Former smoker Alcohol intake: never Alcohol use details: Moderately heavy alcohol use in the past. Substance use: former Substance use type: marijuana Lack of Transportation: No Lack of Food: N
[2022-12-01] MEDS: ENOXAPARIN 40 MG/0.4 ML SYRINGE SUB-Q (10:37)
[2022-12-01] MEDS: lisinopriL 20 MG TABLET PO (10:37)
[2022-12-01] MEDS: ASPIRIN 81 MG ENTERIC TABLET PO (10:37)
[2022-12-01] MEDS: PROPRANOLOL HCL 20 MG TABLET PO (10:38)
[2022-12-01] MEDS: ATORVASTATIN 40 MG TABLET 80 MG PO (10:38)
[2022-12-01] MEDS: hydroCHLOROthiazide 25 MG TABLET PO (10:38)
--- NOTE | 2022-12-01 15:10 | PM.DS ---
DS: Admitting Diagnosis Discharge Date 12/01/22 Admitting Diagnosis Chest pain DS: Discharge Diagnosis Discharge Diagnosis (1) Chest pain: Code(s): R07.9 - Chest pain, unspecified Status: Acute (2) Hypertension: Code(s): I10 - Essential (primary) hypertension Status: Acute (3) Hyperlipidemia: Code(s): E78.5 - Hyperlipidemia, unspecified Status: Acute (4) Diet-controlled type 2 diabetes mellitus: Code(s): E11.9 - Type 2 diabetes mellitus without complications Status: Acute DS: Summary Hospital Course Reason for hospitalization: 71yo male with HTn, HLD, and DM who presented to the emergency department via private vehicle from home for evaluation of chest pain.?Please see H&P for details. Hospital Course: Vital signs were stable. CMP and CBC were unremarkable. D-dimer was normal. Troponins negative x3. EKG showed sinus rhythm without acute ST segment changes. He was admitted to IMU. Cardiology consulted and appreciate their input. CXR was clear. Previous cholesterol panel was reviewed and he was started on Lipitor. He underwent a Lexiscan stress test. The stress portion showed no abnormal ST-T wave changes. Lexiscan showing normal myocardial perfusion at rest and during stress with EF 68%. His chest pain resolved. [place] atypical either musculoskeletal, pleurisy or early shingles. Patient overall did well and was able to be discharged home on 12/01/22 Status at Discharge Cognitive/behavioral status at discharge: Stable Time Spent with Patient Time attestation: Total time spent providing and/or coordinating discharge services: 32 minutes Time spent: Greater than 30 minutes Exam Narrative: AF 97.7 125/88 64 20 100% ra Gen - NARD Chest - CTA bilaterally, nml RR CV - RRR S1/S2. Tele showing no significant dysrhythmias Abd - Soft, NT/ND, Positive BS Ext - No pedal edema Neuro - Alert and oriented. Nonfocal exam. Psych - Nml mood and affect Skin - Warm and dry DS: Data Data Completed and Pending Labs on day of discharge: Labs from last 24 hours 12/01/22 11/30/22 04:03 16:51 D-Dimer < 0.27 Sodium 136 L Potassium 3.5 Chloride 96 L Carbon Dioxide 34 H Anion Gap 6 L BUN 11 Creatinine 0.70 Estim Creat Clear Calc 80 Estimated GFR > 60 Glucose 84 Calcium 9.3 Magnesium 2.1 Troponin I < 0.012 Discharge Plan Discharge Attending physician on discharge: John Stroud Consulting providers: Roseann Long; Blanca Beckman Discharging Clinician: John Stroud Anticipated Discharge Date/Time: 12/01/22 15:27 Patient Disposition: Home, Self-Care Activity: as tolerated Diet: heart healthy and diabetic Discharge Instructions: Take precautions to avoid falls. Rise slowly from a lying or sitting position. Pause before standing or walking. Contact your doctor or call 911 and come to the Emergency Room if you have rash, fever or other worrisome symptoms. Avoid NSAIDs (ibuprofen, naproxen, Aleve). Tylenol is safe to take. Follow-up with your primary care provider in 1-2 weeks. Please call for appointment. Thank you for using [facility] for your health care needs. Patient Instructions: Antibiotic Form Stand Alone Forms: General Discharge Information Follow-up/Referrals: Art,INOCENCIA Carias [Primary Care Provider] - Call for Appointment Discharge Medications: New atorvastatin 80 mg tablet 80 mg PO DAILY Qty: 30 1RF Continued bupropion HCl 150 mg tablet extended release 24 hr 150 mg PO QAM PRN (Reason: Anxiety) alendronate 70 mg Tablet 70 mg PO WEEKLY Rx Instructions: monday morning lisinopril 20 mg Tablet 20 mg PO QAM hydrochlorothiazide 25 mg Tablet 25 mg PO QAM (DME) OneTouch Ultra Test Strip MISCELLANEOUS Rx Instructions: checks once a week. propranolol 20 mg tablet 20 mg PO BID
== END 2022-12-01 16:15 | disposition home or self-care (01) ==
LOC: ANHED 13:36 → ANHIMU 16:06
PROVIDERS: Emergency Medicine; Physician Assistant; Admitting Provider Hospitalist; Emergency Provider Physician Assistant; PCP Nurse Practitioner Family; Visit Provider Internal Medicine
DX: R07.9 Chest pain, unspecified (principal); I10 Essential (primary) hypertension; E11.9 Type 2 diabetes mellitus without complications; E78.5 Hyperlipidemia, unspecified; M81.0 Age-related osteoporosis without current pathological fracture; F41.9 Anxiety disorder, unspecified; F32.A Depression, unspecified; Z87.891 Personal history of nicotine dependence; Z85.51 Personal history of malignant neoplasm of bladder; Z85.038 Personal history of other malignant neoplasm of large intestine; Z85.47 Personal history of malignant neoplasm of testis; Z79.899 Other long term (current) drug therapy; Z82.49 Family history of ischemic heart disease and other diseases of the circulatory system
CPT/HCPCS: 36415; 71045; 78452; 80048; 80053; 83690; 83735; 84484; 85025; 85380; 85610; 85730; 93005; 93017; 96372; 99285; A9270; A9502; G0378; J1650; J2785

== ENCOUNTER 2023-11-14 08:17 | Outpatient (CLI) | payer MEDICARE, MEDICAID, SELFPAY ==
[2023-11-14 09:35] LABS: Alanine Aminotransferase 27 U/L (6-50); Albumin Level 4.4 g/dL (3.5-5.1); Alkaline Phosphatase 55 U/L (38-126); Anion Gap 7 mmol/L (4-12); Aspartate Amino Transferase 23 U/L (17-59); Bilirubin,Total 0.9 mg/dL (0.2-1.3); Blood Urea Nitrogen 12 mg/dL (9-20); Calcium 9.7 mg/dL (8.4-10.2); Carbon Dioxide 28 mmol/L (22-30); Chloride 105 mmol/L (98-107); Estimated Glomerular Filt Rate > 60; Glucose 106 mg/dL (65-110); Potassium 3.8 mmol/L (3.4-5.0); Sodium 140 mmol/L (137-145)
[2023-11-14 10:02] LABS: Prostate Specific Antigen 1.3 ng/mL (< OR = 4.0)
[2023-11-14 10:21] LABS: Hemoglobin A1C 5.6 % (<5.7)
== END 2023-11-14 08:18 | disposition home or self-care (01) ==
PROVIDERS: PCP Nurse Practitioner Family; Visit Provider Internal Medicine
DX: Z12.5 Encounter for screening for malignant neoplasm of prostate (principal); I10 Essential (primary) hypertension; E78.2 Mixed hyperlipidemia; R73.9 Hyperglycemia, unspecified
CPT/HCPCS: 36415; 80053; 83036; 84153; G0103

== ENCOUNTER 2024-04-07 18:52 | Emergency (ER) | payer MEDICARE, MEDICAID, SELFPAY ==
--- NOTE | ~2024-04-07 | CT_ITS ---
EXAMINATION: CT diagnostic chest wo con DATE: 04/07/2024 21:12 INDICATION: Left anterolateral rib TECHNIQUE: Computed tomography (CT) of the chest was performed without intravenous contrast. Automate d exposure control and iterative reconstruction technique were employed. Exam dose: 252.70 mGy-cm to romario exam DLP. COMPARISON: None FINDINGS: 3.3 x 6.4 cm cystic mass in the anterior mediastinum. Differential diagnosis includes pericardial cys t, less likely teratoma, thymoma, lymphoma or thyroid lesion. Consider MR imaging for further evaluat ion. No other mediastinal or hilar mass lesion or lymphadenopathy is noted. Normal heart size. Left main coronary artery calcification. No pericardial effusion. There is thoracic aortic and great vessel calcification. No thoracic aortic aneurysm. Normal appearance of the thyroid gland. No pulmonary infiltrate or consolidation is detected. Mild discoid atelectasis or scarring of the shabnam gula. Prominent degenerative disc disease at C6-7. No suspicious osteolytic or osteoblastic lesions are noted. Incidentally noted is diverticulosis of the colon. 1 cm probable cyst upper pole of right kidney. 1.8 cm probable cyst at the medial mid to upper left k idney. IMPRESSION: 3.3 x 6.4 cm cystic mass in the anterior mediastinum; definitive diagnosis includes indira cardial cyst and less likely teratoma, thymoma, lymphoma or thyroid lesion Left main coronary artery calcification; normal heart size Mild discoid atelectasis or scarring in the lingula Probable renal cysts Diverticulosis of the colon Reviewed, dictated and finalized at [facility]. Reviewed, dictated and finalized at [facility]. IMPRESSION: 3.3 x 6.4 cm cystic mass in the anterior mediastinum; definitive d iagnosis includes pericardial cyst and less likely teratoma, thymoma, lymphoma or thyroid lesion Left main coronary artery calcification; normal heart size Mild discoid atelectasis or scarring in the lingula Probable renal cysts Diverticulosis of the colon
--- NOTE | ~2024-04-07 | XR_ITS ---
XR chest 2V DATE: 04/07/2024 19:28 INDICATION: Chest pain, shortness of breath TECHNIQUE: PA and lateral views COMPARISON: 11/30/2022 portable AP chest FINDINGS: Normal heart size. Aortic arch calcification, mild thoracic aortic unfolding. No hilar or mediastinal enlargement. Minimal bibasilar discoid atelectasis or scarring. No pulmonary infiltrate or consolidation, pleural effusion or pulmonary vascular congestion or pneumothorax is detected. Osteopenia. IMPRESSION: Minimal bibasilar discoid atelectasis or scarring; otherwise no active cardiopulmonary di sease Reviewed, dictated and finalized at [facility]. IMPRESSION: Minimal bibasilar discoid atelectasis or scarring; otherwise no act jorje cardiopulmonary disease
[2024-04-07 18:57] VITALS: BP 155/102; PULSE 65; RESP 19; TEMP 36.5; O2SAT 99
--- NOTE | 2024-04-07 19:01 | ECG_ITS ---
Test Date: 2024-04-07 19:06:43 Measurements Intervals [place] Rate: 62 P: 37 [place]: 153 QRS: 38 QRSD: 90 T: 43 QT: 367 QTc: 373 Interpretive Statements SINUS RHYTHM No previous ECG available for comparison Electronically Signed On 04-08-2024 10:54:50 CDT by Portillo Rodarte M.D.
[2024-04-07 19:28] LABS: Basophils Absolute Auto 0.1 K/mm3 (0.0-0.1); Basophils Percent Auto 1.3 % (0.2-1.2); Eosinophils Absolute Auto 0.2 K/mm3 (0-0.3); Eosinophils Percent Auto 2.4 % (0-4.4); Hematocrit 46.5 % (42.0-52.0); Hemoglobin 15.3 g/dL (14.0-18.0); Immature Granulocyte Absolute 0.02 K/mm3 (0.00-0.031); Immature Granulocyte Percent A 0.3 % (0-0.5); Lymphocytes Absolute Auto 1.49 K/mm3 (0.9-3.2); Lymphocytes Percent Auto 23.5 % (18.3-44.2); Mean Corpuscular HGB Conc 32.9 g/dl (32-36); Mean Corpuscular Hemoglobin 30.9 pg (26-34); Mean Corpuscular Volume 93.9 fl (80-100); Mean Platelet Volume 9.8 fl (7.4-10.4); Monocytes Absolute Auto 0.6 K/mm3 (0.1-0.6); Neutrophils Percent Auto 63.5 % (45.5-73.1); Platelet Count Result 230 k/mm3 (150-375); Red Blood Count 4.95 M/mm3 (4.6-6.20); Red Cell Distribution Width 12.3 % (11.5-14.5); White Blood Count 6.3 K/mm3 (4.5-10.0)
[2024-04-07 19:39] LABS: Alanine Aminotransferase 30 U/L (6-50); Albumin Level 4.6 g/dL (3.5-5.1); Alkaline Phosphatase 51 U/L (38-126); Anion Gap 13 mmol/L (4-12); Aspartate Amino Transferase 23 U/L (17-59); Bilirubin,Total 0.6 mg/dL (0.2-1.3); Blood Urea Nitrogen 22 mg/dL (9-20); Carbon Dioxide 23 mmol/L (22-30); Chloride 102 mmol/L (98-107); Estimated CRCL calculation 71 ml/min; Estimated Glomerular Filt Rate > 60; Glucose 104 mg/dL (65-110); INR 0.9; Lipase 81 U/L (23-300); Partial Thromboplastin Time 27.7 Seconds (22.3-36.8); Sodium 138 mmol/L (137-145)
[2024-04-07 19:49] LABS: Troponin I < 0.012 ng/mL (0.000-0.034)
--- NOTE | 2024-04-07 20:29 | ED.CHESTPAIN ---
HPI - Chest Pain General Chief Complaint: Chest Pain Stated Complaint: chest pain Time Seen by Provider: 04/07/24 20:25 Source: patient Mode of arrival: ambulatory Limitations: no limitations History of Present Illness HPI narrative: This is a 73-year-old male who presents to the ED for chief complaint of chest injury that occurred last night while taking out the trash. Reports he leaned over the trash can wrong and felt something pop in his chest. Reports pain to the anterolateral chest in a very specific spot. States the pain is worse with deeper breathing and with walking and in certain positions. Denies any significant or severe pain. Denies any further sites of injury. Related Data Home Medications Medication Instructions Recorded Confirmed alendronate 70 mg tablet 70 mg PO WEEKLY 12/06/19 11/30/22 hydrochlorothiazide 25 mg tablet 25 mg PO QAM 12/06/19 11/30/22 lisinopril 20 mg tablet 20 mg PO QAM 12/06/19 11/30/22 bupropion HCl 150 mg 24 hr tablet, 150 mg PO QAM PRN Anxiety 12/08/20 11/30/22 extended release blood sugar diagnostic (OneTouch 11/30/22 11/30/22 Ultra Test strips) cyclobenzaprine 5 mg tablet 5 mg PO DAILY PRN Spasms 11/30/22 11/30/22 propranolol 20 mg tablet 20 mg PO BID 11/30/22 11/30/22 Allergies Allergy/AdvReac Type Severity Reaction Status Date / Time No Known Allergies Allergy Verified 11/30/22 11:07 Review of Systems Review of Systems: All systems as dictated in [facility] Past Medical History Medical History Adenomatous colon polyp Anxiety Depression Diet-controlled type 2 diabetes mellitus Hemoglobin A1c was 5.4% in November 2022. Eczema History of bladder cancer (2010) Status post TURBT. History of colon cancer Focal amount of cancer cells in colon polyp which was reportedly completely resected. History of testicular cancer Status post right orchiectomy. Hyperlipidemia Hypertension Osteoporosis Surgical History Surgical History History of bilateral inguinal hernia repair History of colonoscopy with polypectomy History of resection of small bowel (07/17/12) Repair of perforated, incarcerated ventral hernia with small-bowel resection. History of transurethral resection of bladder tumor (TURBT) (2010) History of unilateral orchiectomy (06/21/17) Family History Family History Sibling Leukemia has to many white blood cells. Prostate carcinoma Mother Family history of heart disease in male family member before age 55 Hypertension Acute myocardial infarction Father No problems noted. Social History Social History Social History: Surrogate medical decision maker: Ramonajuan david Robertson, niece. Code status: Full code. Smoking packs per day: 0.5 Smoking cigarettes per day: 10.0 Years smoked: 3 Smoking pack-years: 1.50 Smoking status: Former smoker Alcohol intake: never Alcohol use details: Moderately heavy alcohol use in the past. Substance use: former Substance use type: marijuana Lack of Transportation: No Lack of Food: Never True Current Housing: I Have Housing Concerned About Future Housing: No Difficulty Paying Gas/Electric Bills: No Difficulty Paying for Meds: No Currently Unemployed: No Education: High School Diploma/GED Difficulty w/ Childcare or Family Care: No Living arrangements: alone Additional living arrangements comments: Lives in own home in [place]. 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 Spiritual care concerns: No Exam Narrative: GENERAL: Well-appearing, well-nourished, and in no acute distress. HEAD: Normocephalic, atraumatic. EYES: PERRLA and EOMI. ENT: Nares clear, no rhinorrhea or epistaxis. Mucous membranes moist. Oropharynx without tonsillar hypertrophy exudate or other lesions. NECK: Supple. No adenopathy or masses. CHEST: Chest wall tenderness to the anterolateral chest near the 5/6 rib area. No overt bruising. No crepitus. No respiratory distress. Clear to auscultation. No wheezes rales or rhonchi HEART: Regular rate and rhythm. No murmur heard. Normal peripheral pulses. ABDOMEN: Soft, nontender, nondistended, normal active bowel sounds. MSK: Normal range of motion. No edema. SKIN: Warm, dry, no rash. NEURO: Alert and oriented x4. No focal deficits. PSYCH: Normal mood and affect. Course Vital Signs Vital signs: Vital Signs Temperature 97.7 F 04/07/24 18:57 Pulse Rate 65 04/07/24 18:57 Respiratory Rate 19 04/07/24 18:57 Blood Pressure 155/102 H 04/07/24 18:57 Pulse Oximetry 99 04/07/24 18:57 Oxygen Delivery Room Air 04/07/24 18:57 Temperature 97.7 F 04/07/24 18:57 Pulse Rate 65 04/07/24 18:57 Respiratory Rate 19 04/07/24 18:57 Blood Pressure 155/102 H 04/07/24 18:57 Pulse Oximetry 97 04/07/24 22:16 Oxygen Delivery Room Air 04/07/24 22:16 MDM - Chest Pain MDM Narrative Medical decision making narrative: This is a 73-year-old male who presents to the ED for chief complaint of left chest injury that occurred last night. Vitals show mildly elevated blood pressure but otherwise normal. Exam shows he has point tenderness to the left anterolateral 5th rib. No bruising or crepitus. EKG shows normal sinus rhythm. Chest x-ray: IMPRESSION: Minimal bibasilar discoid atelectasis or scarring; otherwise no active cardiopulmonary disease Chest CT: IMPRESSION: 3.3 x 6.4 cm cystic mass in the anterior mediastinum; definitive diagnosis includes pericardial cyst and less likely teratoma, thymoma, lymphoma or thyroid lesion Left main coronary artery calcification; normal heart size Mild discoid atelectasis or scarring in the lingula Probable renal cysts Diverticulosis of the colon Discussed with patient that he does not have any rib fracture or acute traumatic findings. We did discuss the probable cystic mass that was found on the CT scan today. Do not feel that this is contributing to his presentation today. Advise that he follow-up very closely with his PCP regarding this finding. Patient will be discharged in stable condition. Supportive measures discussed and return precautions given. Patient is understanding and agreeable with plan for discharge with PCP follow-up. Lab Data 04/07/24 19:14 04/07/24 19:14 Labs: Lab Results 04/07/24 Range/Units 19:14 WBC 6.3 (4.5-10.0) K/mm3 RBC 4.95 (4.6-6.20) M/mm3 Hgb 15.3 (14.0-18.0) g/dL Hct 46.5 (42.0-52.0) % MCV 93.9 (80-100) fl MCH 30.9 (26-34) pg MCHC 32.9 (32-36) g/dl RDW 12.3 (11.5-14.5) % Plt Count 230 (150-375) k/mm3 MPV 9.8 (7.4-10.4) fl Immature Gran % (Auto) 0.3 (0-0.5) % Neut % (Auto) 63.5 (45.5-73.1) % Lymph % (Auto) 23.5 (18.3-44.2) % Carroll % (Auto) 9.0 H (2.6-8.5) % Eos % (Auto) 2.4 (0-4.4) % Baso % (Auto) 1.3 H (0.2-1.2) % Lymph # (Auto) 1.49 (0.9-3.2) K/mm3 Carroll # (Auto) 0.6 (0.1-0.6) K/mm3 Eos # (Auto) 0.2 (0-0.3) K/mm3 Baso # (Auto) 0.1 (0.0-0.1) K/mm3 Abs Immat Gran (auto) 0.02 (0.00-0.031) K/mm3 Absolute Neuts (auto) 4.0 (1.3-6.7) K/mm3 Absolute Nucleated RBC 0.000 (0.0-0.012) K/mm3 Nucleated RBC % 0.0 (0.0-0.2) % PT 13.0 (11.1-14.7) Seconds INR 0.9 APTT 27.7 (22.3-36.8) Seconds Sodium 138 (137-145) mmol/L Potassium 4.0 (3.4-5.0) mmol/L Chloride 102 (98-107) mmol/L Carbon Dioxide 23 (22-30) mmol/L Anion Gap 13 H (4-12) mmol/L BUN 22 H D (9-20) mg/dL Creatinine 0.80 (0.7-1.3) mg/dL Estim Creat Clear Calc 71 ml/min Estimated GFR > 60 (59 - ) Glucose 104 (65-110) mg/dL Calcium 10.0 (8.4-10.2) mg/dL Total Bilirubin 0.6 (0.2-1.3) mg/dL AST 23 (17-59) U/L ALT 30 (6-50) U/L Alkaline Phosphatase 51 (38-126) U/L Troponin I < 0.012 (0.000-0.034) ng/mL Total Protein 8.0 (6.3-8.2) g/dL Albumin 4.6 (3.5-5.1) g/dL Lipase 81 (23-300) U/L Discharge Plan Discharge Clinical Impression: Bruised rib, Abnormal chest CT Patient Disposition: Home, Self-Care Condition: Stable Instructions: Antibiotic Form Additional Instructions: Exam and imaging do not reveal any rib fractures. There is however a 3.3 x 6.4 cm cystic mass in the chest that needs to be followed with your regular doctor. Use Tylenol 4-6 hours as needed for pain control. You could also take daily meloxicam and cyclobenzaprine If you have any new or worsening symptoms please return to the ER for further evaluation. Prescriptions: No Action bupropion HCl 150 mg tablet extended release 24 hr 150 mg PO QAM PRN (Reason: Anxiety) alendronate 70 mg Tablet 70 mg PO WEEKLY Rx Instructions: monday morning lisinopril 20 mg Tablet 20 mg PO QAM hydrochlorothiazide 25 mg Tablet 25 mg PO QAM (DME) OneTouch Ultra Test Strip MISCELLANEOUS Rx Instructions: checks once a week. propranolol 20 mg tablet 20 mg PO BID cyclobenzaprine 5 mg tablet 5 mg PO DAILY PRN (Reason: Spasms) atorvastatin 80 mg tablet 80 mg PO DAILY Qty: 30 1RF Follow-up/Referrals: Art,INOCENCIA Carias [Primary Care Provider] - Time of Disposition: 22:40
--- NOTE | 2024-04-07 20:43 | PC.NURSE ---
edp nick vorb no required dose of protocol order asa.
[2024-04-07 22:16] VITALS: O2SAT 97
== END 2024-04-07 23:00 | disposition home or self-care (01) ==
PROVIDERS: Emergency Medicine; Emergency Provider Physician Assistant; PCP Nurse Practitioner Family
DX: S20.219A Contusion of unspecified front wall of thorax, initial encounter (principal); R91.8 Other nonspecific abnormal finding of lung field; X58.XXXA Exposure to other specified factors, initial encounter; F41.8 Other specified anxiety disorders; E11.9 Type 2 diabetes mellitus without complications; Z85.038 Personal history of other malignant neoplasm of large intestine; Z85.51 Personal history of malignant neoplasm of bladder; Z85.47 Personal history of malignant neoplasm of testis; E78.5 Hyperlipidemia, unspecified; I10 Essential (primary) hypertension; M81.0 Age-related osteoporosis without current pathological fracture; Z87.891 Personal history of nicotine dependence
CPT/HCPCS: 36415; 71046; 71250; 80053; 83690; 84484; 85025; 85610; 85730; 93005; 99284

== ENCOUNTER 2024-04-29 06:37 | Outpatient (CLI) | payer MEDICARE, MEDICAID, SELFPAY ==
--- NOTE | ~2024-04-29 | CT_ITS ---
Clinical Indication: Chest mass CT Scan of the Chest with Contrast: Technique: Contiguous sections were acquired throughout the chest after intravenous administration of 75 cc of Omnipaque 350. Dose reduction technique was used on this scan by utilizing automated exposu re control and iterative reconstruction technique. The dose-length product (DLP) was 302.73 mGy-cm. COMPARISON: 04/07/2024 Findings: Stable 6.6 x 3.0 x 6.2 cm cystic mass in the anterior mediastinum. There is no evidence of any signif icant mediastinal, hilar or axillary lymphadenopathy. There is no filling defect in the pulmonary art erial tree to suggest pulmonary embolus. There is no evidence of aortic dissection or aneurysm. There is no evidence of pleural or pericardial effusion. The lungs are clear. No pulmonary nodules or infiltrates are noted. Images through the upper abdomen reveal no abnormalities. Impression: Stable large cystic mass in the anterior mediastinum. Reviewed, dictated and finalized at [facility]. BOSS Impression: Stable large cystic mass in the anterior mediastinum.
[2024-04-29 07:00] LABS: Estimated Glomerular Filt Rate > 60
== END 2024-04-29 06:38 | disposition home or self-care (01) ==
PROVIDERS: PCP Nurse Practitioner Family; Visit Provider Nurse Practitioner Family
DX: R22.2 Localized swelling, mass and lump, trunk (principal)
CPT/HCPCS: 71260; Q9967

== ENCOUNTER 2025-02-26 08:38 | Outpatient (CLI) | payer MEDICARE, SELFPAY ==
--- OUTSIDE RECORDS SUMMARY | 2025-02-26 07:00 | XMS_ITS | Encounter Summary ---
Author Organization [facility] Healthcare Address [address] [place] [address] Care Team Providers Care Ground Service Equipment Mechanic Name Role Phone Aretha Cordova MANAGER EQUITY Primary Care Provider [phone] Reason for Visit * Reason Comments Foot Swelling Feet and ankles ammon mcguire Encounter Details Date Type Department Care Team (Late st Contact Info) Description 02/26/2025 7:00 AM CDT Office Visit [facility] Medical Group Family Medicine [address] [place] [address] Aretha Cordova, MANAGER EQUITY [address] [place] [address] Localized swelling of both feet (Primary Dx); BMI 27.0-27.9,adult Social History Tobacco Use Types Packs/Day Years Used Date Smoking Tobacco: Former Cigarettes Smokeless Tobacco: Never Alcohol Use Standard Drinks/Week Comments Not Currently 0 (1 standard drink = 0.6 oz pur e alcohol) PHQ-2 Answer Date Recorded PHQ-2 Total Score (If total score is 3 or more points, staff should administer the PHQ-9) 0 02/26/2025 AUDIT-C Answer Date Recorded Q1: How often do you have a drink containing alcohol? Never 02/26/2025 Q2: How many drinks containi ng alcohol do you have on a typical day when you are drinking? Patient does not drink Q3: How often do you have si x or more drinks on one occasion? 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 Gender Identity Not on file Sexual Orientation Not on file Occupation Industry Job Start Date Job End Date Retired Not on file Not on file Not on file documented as of this encounter Last Filed Vital Signs Vital Sign Reading Time Taken Comments Blood Pressure 122/82 02/26/2025 7:04 AM CDT Pulse 66 02/26/2025 7:04 AM CDT Temperature 37.1 C (98.8 F) 02/26/2025 7:04 AM CDT Respiratory Rate - - Oxygen Saturation 96% 02/26/2025 7:04 AM CDT Inhaled Oxygen Concentration - - Weight 82.1 kg (181 lb) 02/26/2025 7:04 AM CDT Height 172.7 cm (5' 8) 02/26/2025 7:04 AM CDT Body Mass Index 27.52 02/26/2025 7:04 AM CDT documented in this encounter Functional Status * AUDIT-C Score Answer Date of Assessment Author 0 02/26/2025 7:05 AM CDT Luís Pillai MA * Question Answer Date of Assessment Author Q1: How often do you have a drink containing alcohol? Never 02/26/2025 7:05 AM CDT Debby Pillai MA Q2: How many drinks containing alcohol do you have on a typical day when you are drinking? Patient does not drink 02/26/2025 7:05 AM CDT Debby Pillai MA Q3: How often do you have six or more drinks on one occasion? Never 02/26/2025 7:05 AM CDT Debby Pillai MA documented as of this encounter Patient Instructions * Patient Instructions* Aretha Cordova NP - 02/26/2025 7:00 AM CDT Continue hydrochlorothiazide. Have BNP completed. Elevate feet when home. Follow-up in 1 week or sooner as needed documented in this encounter Plan of Treatment Not on file documented as of this encounter Visit Diagnoses Diagnosis Localized swelling of both feet- Primary BMI 27.0-27.9,adult documented in this encounter Care Teams Ground Service Equipment Mechanic Relationship Specialty Start Date End Date Aretha Cordova NP [address] [address] PCP - General Internal Medicine 10/11/22 documented as of this encounter
--- OUTSIDE RECORDS SUMMARY | 2025-02-26 09:16 | XMS_ITS | Clinical Summary ---
Author Organization [facility] Address [facility] [place] [address] Care Team Providers Care Senior Credit Officer Name Role Phone Nikkie Bland APRN-BLEACH MIXER Primary Care Provider [phone] Source Comments [facility],non-owned Affiliates and Associated Physician Practices is amultiple site organization consisting of ambulatory clinics and hospital sitesin [place], [place], [place] and [place]. This disclosure is being madepursuant to the Care Everywhere program and may not contain all information available regarding this patient. Last updated 18.[facility] Hithru Medications * Be aware that medications may not be up to date on this document. Alwaysverify current medications with the patient. fenofibrate (LOFIBRA) 160 MG tablet Take 160 mg by mouth DAILY. 08/16/2016 Active propranolol (INDERAL) 40 MG tablet Take 40 mg by mouth TID. 08/16/2016 Active venlafaxine (EFFEXOR) 75 MG tablet Take 75 mg by mouth TID. 08/16/2016 Active alendronate (FOSAMAX) 10 MG tablet Take 10 mg by mouth. 08/16/2016 Active Calcium Carb-Cholecalcif hugh (CALCIUM + D3) 600-200 MG-UNIT Take 1 tablet by mouth. 08/16/2016 Active amitriptyline (ELAVIL) 25 MG tablet Take 25 mg by mouth. 08/16/2016 Active metFORMIN CR osmotic 24hr (FORTAMET) 500 MG (OSM) tablet Take 500 mg by mouth DAILY. 08/16/2016 Active lisinopril (PRINIVIL; ZESTRIL) 20 MG tablet Take 20 mg by mouth DAILY. 08/16/2016 Active hydroCHLOROthiaz princess (HYDRODIURIL) 25 MG tablet Take 25 mg by mouth DAILY. 08/16/2016 Active lovastatin (MEVACOR) 40 MG tablet Take 40 mg by mouth Every Evening. 08/16/2016 Active Vitamins/Mineral s TABS Take 1 tablet by mouth DAILY. 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 Gender Identity Not on file Sexual Orientation Not on file Last Filed Vital Signs Vital Sign Reading Time Taken Comments Blood Pressure 132/92 03/17/2017 8:10 AM CDT Pulse 69 03/17/2017 8:10 AM CDT Temperature 36.7 C (98.1 F) 03/17/2017 8:10 AM CDT Respiratory Rate 15 10/13/2016 9:56 AM CDT Oxygen Saturation 99% 03/17/2017 8:10 AM CDT Inhaled Oxygen Concentration - - Weight 74.8 kg (165 lb) 03/17/2017 8:10 AM CDT Height 175.3 cm (5' 9) 03/17/2017 8:10 AM CDT Body Mass Index 24.37 03/17/2017 8:10 AM CDT Plan of Treatment Health Maintenance Due Date Last Done Comments COLOGUARD (AGES 45-75) - COL ON CA SCREENING 1950 COLON MONITORING 1949 COLONOSCOPY - COLON CA SCREENING 1949 CT COLONOGRAPHY - COLON CA SCREENING 1950 Colorectal Cancer Screening 1950 FIT - COLON CA SCREENING 1949 FLEX SIG - COLON CA SCREENING 1949 HEPATITIS C SCREENING 12/11/1967 DTAP/TDAP/TD VACCINES (1 - Tdap) 1968 PNEUMOCOCCAL VACCINE 50+ (1 of 1 - PCV) 12/16/1999 ZOSTER VACCINE (1 of 2) 12/16/1999 DEPRESSION SCREENING 06/12/2024 Respiratory Syncytial Virus (RSV) Vaccine Pt: or over 60 yrs (1 - 1-dose 75+ series) 2024 COVID-19 VACCINE (2023-2 5 season) 2025 INFLUENZA VACCINE (#1) 2025 HEPATITIS B VACCINE Aged Out No longe r eligible based on patient's age to complete this topic HIB VACCINE Aged Out No longer eligi ble based on patient's age to complete this topic HPV VACCINE Aged Out No longer eligi ble based on patient's age to complete this topic MENINGOCOCCAL (Group B) VACC INE SHARED DECISION-MAKING Aged Out No longer eligibl e based on patient's age to complete this topic MENINGOCOCCAL GROUPS A/C/Y/W VACCINE Aged Out No longer eligible b ased on patient's age to complete this topic Care Teams Senior Credit Officer Relationship Specialty Start Date End Date Nikkie Bland APRN-LARON [address] [place] [address] PCP - General 09/27/16
--- OUTSIDE RECORDS SUMMARY | 2025-02-26 09:16 | XMS_ITS | Clinical Summary ---
Author Organization [facility] Address [facility] [place] [address] Care Team Providers Care Night Time Nanny Name Role Phone Nikkie Bland Primary Care Provider [phone] Medications busPIRone 5 MG tablet Take 1 tablet by mouth every 12 (twelve) hours. 10/30/2017 Active fenofibrate 160 MG tablet Take 1 tablet by mouth daily. 01/16/2017 Active hydrochlorothia zide 25 MG tablet Take 1 tablet by mouth daily. 05/22/2017 Active lisinopril 20 MG tablet Take 1 tablet by mouth daily. 03/21/2017 Active metFORMIN 500 MG tablet 09/11/2017 Active propranolol 40 MG tablet Take 1 tablet by mouth daily. 05/29/2017 Active venlafaxine 75 MG tablet Take 1 tablet by mouth daily. 09/11/2017 Active alendronate 10 MG tabletIndicatio ns:Osteoporosis Take 1 tablet (10 mg total) by mouth daily. 90 tablet 04/30/2018 Active lovastatin 40 MG tabletIndicatio ns:Hyperlipemia Take 1 tablet (40 mg total) by mouth nightly at bedtime. 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 Right testicular cancer ([facility]) 2017 S/P orchiectomy 07/03/2017 History of colon polyps 04/27/2017 Hypertension 09/27/2016 Depression 08/19/2016 Hyperlipemia 08/19/2016 Osteoporosis 08/19/2016 Right-sided low back pain with sciatica 08/20/19 17 Type 2 diabetes mellitus ([facility]) 08/19 Social History Tobacco Use Types Packs/Day Years Used Date Smoking Tobacco: Never Assessed Sex and Gender Information Value Date Recorded Sex Assigned at Not on file Legal Sex Male 1:58 PM CDT Gender Identity Not on file Sexual Orientation Not on file Last Filed Vital Signs Vital Sign Reading Time Taken Comments Blood Pressure 127/92 10/30/2017 9:13 AM CDT Pulse 73 10/30/2017 9:13 AM CDT Temperature - - Respiratory Rate - - Oxygen Saturation - - Inhaled Oxygen Concentration - - Weight 78.6 kg (173 lb 3.2 oz) 10/30/2017 9:13 A M CDT Height 175.3 cm (5' 9) 10/30/2017 9:13 AM CDT Body Mass Index 25.58 10/30/2017 9:13 AM CDT Plan of Treatment Health Maintenance Due Date Last Done Comments Colorectal Cancer Screening Colonoscopy (10 Years) 1950 Hepatitis C 12/16/1967 DTaP, Tdap and Td Vaccines ( 1 - Tdap) 1968 Zoster Vaccines (1 of 2) 12/16/1999 RSV Immunization or 60+ Years (1 - 1-dose 75+ series) 2024 COVID-19 Vaccine ( - 2023-2 5 season) 2025 Pneumococcal Vaccine: 50+ Years Completed 07/03/2016, 07/03/2015 Meningococcal B Vaccine Aged Out No l onger eligible based on patient's age to complete this topic Meningococcal Vaccine Aged Out No maira chapo eligible based on patient's age to complete this topic RSV Immunizations Under 20 Months Aged Out No longer eligible b ased on patient's age to complete this topic Care Teams Night Time Nanny Relationship Specialty Start Date End Date Nikkie Bland FNP [address] [place] [id number] PCP - General Nurse Practitioner Family 10/29/18
--- OUTSIDE RECORDS SUMMARY | 2025-02-26 09:16 | XMS_ITS | Clinical Summary ---
Author Organization [facility] [address] Address [address] [place] [address] Care Team Providers Care Chemistry Technician Name Role Phone Aretha Cordova NP Primary Care Provider [phone] Allergies No known active allergies Medications blood-glucose meter kit 1 each daily Check sugar once daily 1 each 1 04/27/20 20 Active lancets miscIndications:Hy perglycemia Use to check blood sugar daily 100 each 1 10/25/19 24 Active lancets misc Check blood sugar 4 times a day or as directed. 600 each 4 10/26/19 24 Active cyclobenzaprine (FLEXERIL) 5 mg tabletIndications: Myalgia TAKE 1 TABLET(5 MG) BY MOUTH THREE TIMES DAILY NEEDED FOR MUSCLE SPASMS 270 tablet 09/03/19 25 Active atorvastatin (LIPITOR) 80 mg tabletIndications: Mixed hyperlipidemia TAKE 1 TABLET BY MOUTH DAILY 100 tablet 2 09/12/19 25 Active alendronate (FOSAMAX) 70 mg tabletIndications: History of bladder cancer TAKE 1 TABLET BY MOUTH WEEKLY WITH 8 OZ OF PLAIN WATER 30 MINUTES BEFORE FIRST FOOD, DRINK OR MEDS. STAY UPRIGHT FOR 30 MINS 12 tablet 3 10/29/19 25 Active blood glucose diagnostic (OneTouch Ultra Test) strip TEST ONCE DAILY 100 strip 1 11/27/19 25 Active propranoloL (INDERAL) 20 mg tabletIndications: Primary hypertension TAKE 1 TABLET BY MOUTH TWICE DAILY 200 tablet 2 12/17/19 25 Active blood-glucose meter miscIndications:El evated blood sugar Use daily or as directed for monitoring of diabetes. 1 each 01/03/20 25 Active traZODone (DESYREL) 50 mg tabletIndications: Primary insomnia Take 1 tablet (50 mg total) by mouth nightly as needed for sleep for sleep 90 tablet 2 02/15/20 25 Active lisinopriL (PRINIVIL,ZESTRIL) 20 mg tabletIndications: Essential hypertension Take 1 tablet (20 mg total) by mouth daily 100 tablet 2 02/15/20 25 Active hydroCHLOROthiazid e (HYDRODIURIL) 25 mg tabletIndications: Primary hypertension Take 1 tablet (25 mg total) by mouth daily 100 tablet 2 02/15/20 25 Active celecoxib (CeleBREX) 400 mg capsuleIndications :Right hand pain Take 1 capsule (400 mg total) by mouth daily 90 capsule 2 02/15/20 25 Active hydroCHLOROthiazid e (HYDRODIURIL) 25 mg tablet TAKE 1 TABLET BY MOUTH DAILY 100 tablet 2 07/08/19 25 025 Discontin ued(Reord er) lisinopriL (PRINIVIL,ZESTRIL) 20 mg tabletIndications: Essential hypertension TAKE 1 TABLET BY MOUTH DAILY 100 tablet 2 07/08/19 25 025 Discontin ued(Reord er) celecoxib (CeleBREX) 400 mg capsuleIndications :Right hand pain Take 1 capsule by mouth once daily 30 capsule 01/16/20 25 025 Discontin ued(Reord er) traZODone (DESYREL) 50 mg tabletIndications: Primary insomnia TAKE 1 TABLET BY MOUTH NIGHTLY NEEDED FOR SLEEP 30 tablet 01/16/20 25 025 Discontin ued(Reord er) celecoxib (CeleBREX) 400 mg capsuleIndications :Right hand pain Take 1 capsule (400 mg total) by mouth daily 30 capsule 02/13/20 25 025 Discontin ued(Reord er) Active Problems Problem Noted Date Diagnosed Date Localized swelling of both feet 02/26/2025 Primary insomnia 11/28/2024 Right hand pain 09/18/2024 Prediabetes 05/29/2024 Chest mass 04/10/2024 Pain of right heel 11/28/2023 Elevated blood sugar 05/24/2023 Arthritis 11/10/2022 Assessment & Plan (11/10/2022 8:52 AM CDT): This is a significant, separately identifiable problem that was evaluated and managed on the same day as the wellness exam Flu vaccine need 03/22/2022 Sleep disturbance 12/08/2021 Assessment & Plan (12/08/2021 10:45 AM CDT): He declines the advised referral for a sleep study Trapezius muscle spasm 12/08/2021 Assessment & Plan (12/08/2021 12:01 PM CDT): We will refer to Physical therapy for further evaluation and treatment. Chronic left shoulder pain 12/08/2021 Assessment & Plan (12/08/2021 12:00 PM CDT): We will refer to Physical therapy for further evaluation and treatment. He declines orthopedic consult at this time. Acute non-recurrent pansinusitis 12/08/2021 Assessment & Plan (12/08/2021 12:00 PM CDT): He will continue with saline spray [id number]. We will add Ceftin 500 mg twice daily for 7 days. He was advised to follow-up in the next week if not improving, sooner if worsening. Statin myopathy 10/13/2021 Assessment & Plan (10/13/2021 5:55 PM CDT): Discontinue statin Myalgia 10/13/2021 Assessment & Plan (10/13/2021 5:56 PM CDT): Will evaluate further with labs Advised no driving for 6h after taking flexeril Foot pain, left 10/13/2021 Assessment & Plan (10/21/2021 5:47 PM CDT): We reviewed xray and labs He will look into shoe inserts, changing shoes He will call podiatry for appt Assessment & Plan (10/13/2021 5:56 PM CDT): Will evaluate further with imaging and labs Hand pain, left 01/04/2021 Assessment & Plan (01/04/2021 9:53 AM CDT): Add qid/prn voltaren gel - he has rx at home Advised ortho hand referral if not improving Injury of collateral ligament of finger of right hand 01/04/2021 Assessment & Plan (01/04/2021 9:53 AM CDT): Retrieve ortho notes He was encouraged to remove the brace daily and change the tape Costochondritis, acute 09/30/2020 Assessment & Plan (10/07/2020 11:02 AM CDT): He will continue with ibuprofen prn pain. We discussed imaging and further testing if symptoms do not resolve. Assessment & Plan (09/30/2020 10:27 AM CDT): Patient declines to report to er now for cardiac/pulmonary workup at this time. He will not drive for 6h after taking flexeril. He agrees to report to er if symptoms not improving or are worsening. Hypercalcemia 03/25/2020 Assessment & Plan (04/27/2020 9:59 AM [employer]ING MIXER): We reviewed recent labs. He will continue medication the same. Assessment & Plan (03/25/2020 9:25 AM CDT): Repeat CMP in the next month. Lab order printed for patient. BMI 27.0-27.9,adult 02/26/2020 Assessment & Plan (08/25/2020 8:33 AM CDT): Weight/BMI is in healthy range. Continue healthy lifestyle to maintain. Assessment & Plan (02/26/2020 8:29 AM CDT): Weight/BMI is in healthy range. Continue healthy lifestyle to maintain. Physical exam, annual 02/26/2020 Renal cyst, right 02/26/2020 Assessment & Plan (03/25/2020 9:25 AM CDT): Retrieve CT and notes from supplier quality engineer. Assessment & Plan (02/26/2020 9:29 AM CDT): Will retrieve records from previous PCP and urologist. Discussed potential referral pending review of records Anxiety 10/30/2017 Assessment & Plan (08/04/2021 1:52 PM [employer]): Stable at this time, continue meds same Assessment & Plan (04/27/2020 9:59 AM [employer]ER): Continue with wellbutrin the same. He was encouraged to walk for exercise 4x/week for 30min each session. Assessment & Plan (03/25/2020 9:26 AM CDT): Discontinue buspirone start Wellbutrin daily. He was advised to decrease screen and news time. He was encouraged to find ways to interact socially. Assessment & Plan (02/26/2020 9:29 AM CDT): Will start on BuSpar. Will re-evaluate in 1 month to determine if dose adjustment needs to be made. 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 They will monitor home bp with goal 120-130/80s. Assessment & Plan (08/04/2021 1:51 PM [employer] M[employer]ER): Fasting labs entered, will notify patient of results as available Will change inderal to 20mg bid Assessment & Plan (05/10/2021 6:09 PM [employer]): Stable, continue medications same at this time. Assessment & Plan (02/26/2020 9:28 AM CDT): Refill medications as needed Continue medications same Will check routine labs, will notify of results as available Will retrieve records from previous PCP Hyperlipemia 08/19/2016 Assessment & Plan (12/08/2021 12:01 PM CDT): Advised patient to follow a heart healthy diet, low in red meat and pork, and increase veggies. Advised exercise 4x/week for 30min each session. Assessment & Plan (08/04/2021 1:51 PM [employer]): Fasting labs entered, will notify patient of results as available Stable at this time, continue meds same Assessment & Plan (05/10/2021 8:04 AM [employer] M[employer]ER): -discontinue tricor. Start on crestor 10mg at bedtime. Assessment & Plan (08/25/2020 10:05 AM CDT): We reviewed recent labs - he admits that he was not fasting and had forgotten to do so. He will continue with a heart healthy diet, exercise 4x/week for 30min each session. We will repeat labs in the coming months. He will continue medications same at this time. Assessment & Plan (02/26/2020 9:28 AM CDT): Refill medications as needed Continue medications same Will check routine labs, will notify of results as available Will retrieve records from previous PCP Episode of recurrent major depressive disorder 0 08/19/2016 Assessment & Plan (05/10/2021 6:10 PM [employer]ER): -take wellbutrin 150mg every other day x 7 days, then discontinue/stop it. We also discussed increasing his Effexor pending the response to this. Assessment & Plan (02/04/2021 9:16 AM CDT): Stable, continue meds at this time Assessment & Plan (01/24/2021 5:56 PM CDT): Discussed with patient at length his symptoms and medication history. He states he does not have any suicidal, self harm or homicidal thoughts. If these occur he is to call immediately or go to the ER. Will plan to return to the Effexor -- will probably need at least 150mg and maybe up to 225 to get more of the norepinepherine effect but will titrate back up slowly. Will decrease the Wellbutrin to 150 and pending how he responds will decide to continue at low dose vs discontinue. He is to decrease the Wellbutrin 150mg daily. He states he still has a supply at home. Restart Effexor XR 37.5 one daily x 1 week then increase to 75mg the second week. When he runs out of the 37.5 doubling up will refill with a 75mg tab. This was made into a dosing graph and he voiced understanding. He is to followup in 2-3 weeks to reassess or sooner if has an increase in sxs. Reviewed with patient that the sexual side effects may be secondary to age and or DM history and could consider addressing this with other medications as may not be due to the antidepressant alone. Will address further as his sxs are better controlled. Assessment & Plan (01/04/2021 9:53 AM CDT): Increase wellbutrin He declines counseling at this time Assessment & Plan (03/25/2020 9:26 AM CDT): Discontinue buspirone start Wellbutrin daily. He was advised to decrease screen and news time. He was encouraged to find ways to interact socially. 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 Continue healthy lifestyle to maintain. BMI 26.0-26.9,adult 11/10/2022 04/10/20 24 Assessment & Plan (05/24/2023 9:31 AM [employer]): Weight/BMI is in healthy range. Continue healthy lifestyle to maintain. History of diabetes mellitus 12/08/2021 05/24/2023 Assessment & Plan (12/08/2021 12:01 PM CDT): Resolved through dietary change and weight loss. BMI 24.0-24.9, adult 02/04/2021 023 Assessment & Plan (02/04/2021 7:30 AM CDT): Weight/BMI is in healthy range. Continue healthy lifestyle to maintain. BMI 25.0-25.9,adult 01/20/2021 12/09/19 22 Assessment & Plan (01/20/2021 11:41 AM CDT): Weight/BMI is in healthy range. Continue healthy lifestyle to maintain. BMI 26.0-26.9,adult 09/30/2020 10/22/19 22 Assessment & Plan (08/04/2021 1:53 PM [employer]): Congratulated on weight loss over the last year. Encouraged continued heart healthy diet and exercise 4x/week for 30min each session. Assessment & Plan (01/04/2021 8:20 AM CDT): Weight/BMI is in healthy range. Continue healthy lifestyle to maintain. Assessment & Plan (10/07/2020 9:09 AM CDT): Weight/BMI is in healthy range. Continue healthy lifestyle to maintain. Assessment & Plan (09/30/2020 9:49 AM CDT): Weight/BMI is in healthy range. Continue healthy lifestyle to maintain. Annual physical exam 02/26/2020 021 Kunal impaction 10/30/2017 03/22/2022 Type 2 diabetes mellitus 08/19/2016 Assessment & Plan (10/13/2021 5:55 PM CDT): Patient advised goal glucose fasting 80-120. They were reminded to contact the office if having difficulty keeping sugar in goal ranges. They were advised to not skip meals and maintain a heart healthy diet (cut back on processed foods, red meat, fried foods). They were reminded to exercise 4x/week for 30min each session. Fasting labs entered, will notify patient of results as available Assessment & Plan (08/04/2021 1:52 PM [employer]): Fasting labs entered, will notify patient of results as available Stable at this time, continue meds same Assessment & Plan (05/10/2021 8:02 AM AC[employer] CYL[employer] M[employer]ER): -stop/discontinue januvia. Monitor sugar over the next week at least once daily - goal is 80-120 fasting. Assessment & Plan (01/04/2021 9:52 AM CDT): Fasting labs entered, will notify patient of results as available Continue meds same at this time Assessment & Plan (08/25/2020 10:06 AM CDT): He will continue with a heart healthy diet, exercise 4x/week for 30min each session. We will repeat labs in the coming months. He will continue medications same at this time. Assessment & Plan (04/27/2020 9:59 AM AC[employer] M[employer]ER): Will continue with januvia. He was encouraged to eat small, frequent meals. He will continue to monitor glucose daily. Assessment & Plan (03/25/2020 9:25 AM CDT): Discontinue metformin and start Januvia tomorrow. We discussed that he should continue with a low sugar diet and exercise. Assessment & Plan (02/26/2020 9:29 AM CDT): Refill medications as needed Continue medications same Will check routine labs, will notify of results as available Will retrieve records from previous PCP Right-sided low back pain with sciatica 08/19/2016 03/22/2022 Encounters Date Type Department Care Team Description 02/26/2025 7:00 AM CDT Office Visit [address] [place] [phone] Aretha Cordova NP Localized swelling of both feet (Primary Dx); BMI 27.0-27.9,adult 02/26/2025 Orders Only [address] [place] [phone] Aretha Cordova NP SOB (shortness of breath) (Primary Dx); Localized edema 02/14/[address] [place] [phone] Aretha Cordova NP Medication Request 01/02/2025 8:30 AM CDT Office Visit [address] [place] [phone] Aretha Cordova NP Physical exam, annual (Primary Dx); Right hand pain; BMI 27.0-27.9,adult; Elevated blood sugar 11/28/2024 8:30 AM CDT Office Visit [address] [place] [phone] Aretha Cordova NP Right hand pain (Primary Dx); BMI 28.0-28.9,adult; Primary insomnia from Last 3 Months Immunizations Immunization Administration Dates Next Due Influenza, Quadrivalent, Hig h Dose, Preservative Free, Intrr 03/22/2022,02/20/2020 Influenza, Trivalent, High D ose, Split, Preservative Free, Intramuscular 04/10/2024,02/18/2019,02/13/2018,03/03,02/15/2017,03/04/2016 Influenza, Trivalent, IM (MDV) 03/14/2013,2011 Influenza, Trivalent, Preser vative Free, Intramuscular 03/21/2016 Pneumococcal Conjugate PCV 13 07/03/2016, 015 Pneumococcal Polysaccharide PPV23 04/12/2016, RSV, Bivalent, Protein Subun it Rsvpref, Diluent (Abrysvo) 03/31/2023 Tdap 07/30/2019 ZOSTER LIVE 11/19/2015 ZOSTER Recombinant 01/02/2020,07/30/2019 Surgical History Surgery Date Site/Laterality Comments HEMORRHOID SURGERY Ablation HERNIA REPAIR Hernia repair x 3 Medical History Medical History Date Comments Hx Other Medical 2012 Bladder cancer Type 2 diabetes mellitus Diabete s type 2 Diverticulosis Malignant neoplasm of urinary bladder (HCC) Cancer, bladder Colon cancer (HCC) Testicular cancer (HCC) Arthritis Family History Medical History Relation Name Comments Leukemia Brother Prostate cancer Brother Laryngeal Cancer Father Heart disease Mother Hypertension Mother Relation Name Status Comments Brother Father Mother Social History Tobacco Use Types Packs/Day Years Used Date Smoking Tobacco: Former Cigarettes Smokeless Tobacco: Never Tobacco Cessation:Counseling Given: Not Answered Alcohol Use Standard Drinks/Week Comments Not Currently [...] on file Legal Sex Male 9:10 PM [employer] Gender Identity Not on file Sexual Orientation Not on file Occupation Industry Job Start Date Job End Date Retired Not on file Not on file Not on file Obstetrics History Last Filed Vital Signs Vital Sign Reading Time Taken Comments Blood Pressure 122/82 02/26/2025 7:04 AM CDT Pulse 66 02/26/2025 7:04 AM CDT Temperature 37.1 C (98.8 F) 02/26/2025 7:04 AM CDT Respiratory Rate 16 12/08/2021 10:15 AM CDT Oxygen Saturation 96% 02/26/2025 7:04 AM CDT Inhaled Oxygen Concentration - - Weight 82.1 kg (181 lb) 02/26/2025 7:04 AM CDT Height 172.7 cm (5' 8) 02/26/2025 7:04 AM CDT Body Mass Index 27.52 02/26/2025 7:04 AM CDT Plan of Treatment Health Maintenance Due Date Last Done Comments Hepatitis C Screening 1950 Hepatitis B Screening [birth year]16/1968 Abdominal Aortic Aneurysm (AAA) Screen 2014 02/03/2014 Influenza Vaccine (#1) 2025 , 03/31/2023, 03/22/2022, Additional history exists Fall Risk Assessment 09/18/2025 09/18/2024, 05/29/2024, 04/10/2024, Additional history exists Well Visit 65+ 01/02/2026 01/02/2025, 11/10, 11/10/2022, Additional history exists Depression Screening 02/26/2026 02/26/2025, 01/02/2025, 11/28/2024, Additional history exists Prostate Cancer Screening-PSA 07/10/2026 07/10/2024, 03/06/2020 Colon Cancer Screening-Colonoscopy 06/21/2028 Postponed from 1950 (Patient declined, but will receive in the future) DTaP/Tdap/Td Vaccine (2 - Td or Tdap) 07/30/2029 07/30/2019 Pneumococcal vaccine 65+ Completed 017, 04/12/2016, 07/03/2015, Additional history exists Zoster Vaccine Completed 01/02/2020, 07/13, 11/19/2015 Procedures Procedure Name Priority Date/Time Associated Diagnosis Comments PSA SCREEN Routine 07/10/2024 8:45 AM [employer] Screening for prostate cancer CT ABDOMEN PELVIS W WO CONTRAST Routine 02/03/2014 8:00 AM CDT from Last 3 Months or Most Recently Relevant to Health Maintenance Results * PSA screen (07/10/2024 8:45 AM AC[employer] M[employer]ER) PSA 1.09 < OR = 4.00 ng/mL [facility] Comment: The total PSA value from this assay system is standardized against the WHO standard. The test result will be approximately 20% lower when compared to the equimolar-standardized total PSA (Danitza Mesha). Comparison of serial PSA results should be interpreted with this fact in mind. This test was performed using the Siemens chemiluminescent method. Values obtained from different assay methods cannot be used interchangeably. PSA levels, regardless of value, should not be interpreted as absolute evidence of the presence or absence of disease. Blood 07/10/2024 8:45 AM AC[employer]E [employer] MIXER 07/10/2024 8:48 AM AC[employer]E [employer] MIXER Narrative [facility] - 07/11/2024 4:41 AM ACET[employer]E CYL[employer] M[employer]ER FASTING:YES FASTING: YES Aretha Cordova BANK COMPLIANCE OFFICER LAB BLOOD ORDERABLES Final Re sult [facility] [address] [place] [phone] * CT Abdomen Pelvis W WO Contrast (02/03/2014 8:00 AM CDT) Anatomical Region Laterality Modality Body N/A Computed Tomogra phy 02/03/2014 8:00 AM CDT Impressions 02/03/2014 9:21 AM CDT 1. No renal or ureteral stones. No filling defects in either renal collecting system, either ureter, or the bladder. 2. Multiple small hypoattenuating lesions in both kidneys, consistent with renal cysts. There are no abnormally enhancing renal lesions. 3. Colonic diverticulosis with no CT evidence of diverticulitis. 4. Bilateral pars defects and L5 with grade 3 anterolisthesis of L5 on S1 and chronic degenerative changes in osseous bridging at this level. THIS IS AN ELECTRONICALLY VERIFIED REPORT 02/03/2014 9:17 AM: Fredy Frey M.D. Fredy Frey M.D. CN:komal 09:17 AM 09:17 AM [facility] [EOD] Narrative 02/03/2014 9:21 AM CDT EXAMINATION: 1. CT abdomen with and without intravenous contrast 2. CT pelvis with intravenous contrast HISTORY: Bladder cancer, now with hematuria TECHNIQUE: Computed tomographic images of the abdomen were obtained before and after the administration of intravenous contrast, and computed tomographic images of the pelvis were obtained after the administration of intravenous contrast according to the hematuria protocol. Total of 100 mL Omnipaque 350 intravenous contrast was administered. COMPARISON: None available FINDINGS: Limited images of the lung bases do not demonstrate any focal consolidation or pleural effusion. There is mild atelectasis in the right middle lobe and lingula. The noncontrast images do not demonstrate any renal or ureteral stones. There is cortical scarring in the lateral aspect of the mid zone of the left kidney, which may be from prior inflammation or infection. There are hypoattenuating lesions in both kidneys, which do not demonstrate any abnormal enhancement and are consistent with renal cysts. There are no filling defects in the either renal collecting system, either ureter, or the bladder. The liver, gallbladder, spleen, pancreas and adrenal glands are normal. The prostate is mildly enlarged with some internal calcification.The bladder is mildly thick-walled, which may be secondary to bladder outlet obstruction. The bladder otherwise appears normal. The stomach, small bowel, and large bowel normal in course and caliber with no evidence of obstruction or inflammation. There is colonic diverticulosis with no CT evidence of diverticulitis. There is a small fat-containing right inguinal hernia. The appendix is visualized and is normal. There is mild calcified and noncalcified atherosclerotic plaque in the abdominal aorta. The abdominal aorta is normal in caliber. There is no abdominal or pelvic lymphadenopathy or free fluid. There is no free intraperitoneal air. Bone windows do not demonstrate any abnormal osseous lytic or blastic lesions. There are bilateral pars defects at L5 with grade 3 anterolisthesis of L5 on S1 with chronic degenerative changes and osseous bridging at this level. Procedure Note Provider, MD Oliver - 05/18/2021 EXAMINATION: 1. CT abdomen with and without intravenous contrast 2. CT pelvis with intravenous contrast HISTORY: Bladder cancer, now with hematuria TECHNIQUE: Computed tomographic images of the abdomen were obtainedbefore and after the administration of intravenous contrast, and computedtomographic images of the pelvis were obtained after the administration of intravenous contrast according to the hematuria protocol. Total of 100 mL [id number] intravenous contrast was administered. COMPARISON: None available FINDINGS: Limited images of the lung bases do not demonstrate any focal consolidation or pleural effusion. There is mild atelectasis in the right middle lobe and lingula. The noncontrast images do not demonstrate any renal or ureteral stones.There is cortical scarring in the lateral aspect of the mid zone of the leftkidney, which may be from prior inflammation or infection. There arehypoattenuating lesions in both kidneys, which do not demonstrate any abnormal enhancementand are consistent with renal cysts. There are no filling defects in theeither renal collecting system, either ureter, or the bladder. The liver, gallbladder, spleen, pancreas and adrenal glands are normal. The prostate is mildly enlarged with some internal calcification.The bladderis mildly thick-walled, which may be secondary to bladder outlet obstruction.The bladder otherwise appears normal. The stomach, small bowel, and large bowel normal in course and caliberwith no evidence of obstruction or inflammation. There is colonic diverticulosiswith no CT evidence of diverticulitis. There is a small fat-containing right inguinal hernia. The appendix is visualized and is normal. There is mild calcified and noncalcified atherosclerotic plaque in the abdominal aorta.The abdominal aorta is normal in caliber. There is no abdominal or pelvic lymphadenopathy or free fluid. There is no free intraperitoneal air. Bone windows do not demonstrate any abnormal osseous lytic or blasticlesions. There are bilateral pars defects at L5 with grade 3 anterolisthesis of L5on S1 with chronic degenerative changes and osseous bridging at this level. IMPRESSION: 1. No renal or ureteral stones. No filling defects ineither renal collecting system, either ureter, or the bladder. 2. Multiple small hypoattenuating lesions in both kidneys, consistent with renal cysts. There are no abnormally enhancing renal lesions. 3. Colonic diverticulosis with no CT evidence of diverticulitis. 4. Bilateral pars defects and L5 with grade 3 anterolisthesis of L5 on S1and chronic degenerative changes in osseous bridging at this level. THIS IS AN ELECTRONICALLY VERIFIED REPORT 02/03/2014 9:17 AM: Fredy Frey M.D. Fredy Frey M.D. CN:komal 09:17 AM 09:17 AM BM [EOD] us Fredy Lewis MD IMG CT PROCEDURES Fi nal Result from Last 3 Months or Most Recently Relevant to Health Maintenance Insurance MEDICARE ADVANTAGE MEDICARE ADVANTAGE Care Teams Chemistry Technician Relationship Specialty Start Date End Date Aretha Cordova NP [address] [place] [address] PCP - General Internal Medicine 10/11/22
--- OUTSIDE RECORDS SUMMARY | 2025-02-26 09:16 | XMS_ITS | Encounter Summary ---
Author Organization [facility] Address [address] [place] [address] Care Team Providers Care Verifier Name Role Phone Aretha Cordova NP Primary Care Provider [phone] Encounter Details Date Type Department Care Team (Late st Contact Info) Description 02/26/2025 Orders Only [facility] Family Medicine [address] [id number] Aretha Cordova, RECEIVING ASSOCIATE [address] [place] [address] SOB (shortness of breath) (Primary Dx); Localized edema Social History Tobacco Use Types Packs/Day Years [...] on file 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 Never 02/26/2025 7:05 AM CDT Debby Pillai MA documented as of this encounter Progress Notes * Patricia Jo LPN - 02/26/2025 8:53 AM CDT Order updated. documented in this encounter Plan of Treatment Scheduled Orders Name Type Priority Associated Diagnoses Orde r Schedule Pro B-type natriuretic peptide Lab Routine SOB (shortness of breath) Localized edema Expected: 03/01/2025, Expires: 02/26/2026 documented as of this encounter Visit Diagnoses Diagnosis SOB (shortness of breath)- Primary Shortness of breath Localized edema Edema documented in this encounter Care Teams Verifier Relationship Specialty Start Date End Date Aretha Cordova NP [address] [place] [address] PCP - General Internal Medicine 10/11/22 documented as of this encounter
--- OUTSIDE RECORDS SUMMARY | 2025-02-26 09:16 | XMS_ITS | Patient Health Record ---
Author Organization [facility] Address [address] [place], [place] [id number] Care Team Providers Care Slime Plant Operator Helper Name Role Phone JOSE MARIA Unavailable [phone] Aretha Cordova Unavailable Unavailable Allergies No Known Allergies Reason For Referral No Information Plan Of Treatment No Information Insurance Providers Payer Name Payer Address Payer Phone Subscriber Number Group Number Insured Name Patient Relationship to Insured Coverage Start Date Coverage End Date [facility] [address] [address] [place] [address] [id number] REHANA MENA Self - patient is the insured Medical (General) History Medical History History ICD Code acid reflux Cancer (type of cancer) Skin Disorder Arthritis Back Trouble Diabetic Psychiatric Disorder varicose veins hypertension Surgical History Surgery Date(Month/Year) Bladder Cancer Hernia Colon Cancer
[2025-02-26 10:00] LABS: NT Pro B Type Natriuretic Pept 350 pg/mL (19.9-100)
== END 2025-02-26 08:39 | disposition home or self-care (01) ==
PROVIDERS: PCP Nurse Practitioner Family; Visit Provider Nurse Practitioner Family
DX: R22.43 Localized swelling, mass and lump, lower limb, bilateral (principal)
CPT/HCPCS: 36415; 83880